=== PATIENT | male | born 2000 | race Caucasian/White ===

== ENCOUNTER 2021-01-23 19:32 | Emergency (ER) | payer BC, OTHER, SELFPAY ==
--- OUTSIDE RECORDS SUMMARY | 2021-01-23 19:35 | XMS REPORT | Continuity of Care Document ---
:2000 Author Organization [facility] t Address [address] [place] [address] Care Team Providers Name Role Phone Morgan Higgins MD Attending Clinician Bernardino Smith MD Attending Clinician Ryan LOGAN Attending Clinician Doctor Unassigned, Name Attending Clinician Unavailable Georges MCDERMOTT Attending Clinician Unavailable Leatha Gautam DO Attending Clinician Problems This patient has no known problems. Allergies, Adverse Reactions, Alerts This patient has no known allergies or adverse reactions. Medications This patient has no known medications. Procedures This patient has no known procedures. Encounters Start End Encounter Admission Attending Care Care Encounter Source Date/Time Date/Time Type Type Clinicians Facility Department ID 2021-01-17 2021-01-18 Emergency [facility] [id number] 23:12:00 00:27:00 Capri [place] [id number] [place] [id number] [place] [id number] 2020-04-18 2020-04-18 Emergency Luis, TRAUMA [id number] 01:09:01 02:25:00 Saul BEE [id number] 2020-04-17 2020-04-17 Emergency [facility] [id number] 13:17:04 14:30:00 Do [place] [id number] [place] [id number] [place] [id number] 2020-04-17 2020-04-17 Orders Doctor DANILO [id number] 00:00:00 00:00:00 Only Unassigned, STACY [id number] [place] [address] [id number] 2020-04-17 2020-04-17 Nurse DANILO Su [id number] 00:00:00 00:00:00 Triage Sandra KUMAR [id number] [id number] 2019-07-08 2019-07-08 Emergency BREEZY Gautam [id number] 14:30:00 15:08:00 Jaja [place] [id number] [place] [id number] [place] [id number] Results This patient has no known results.
[2021-01-23 22:22] LABS: Protime INR 1.1
[2021-01-23 22:25] LABS: Absolute Lymphocytes (CBC) 4.1 K/uL (0.7-4.9); Basophils % 0.5 % (0-1.3); Hematocrit 46.3 % (39.6-49.0); Lymphocytes % 38.1 % (15.3-44.8); MPV 7.8 fL (7.6-11.3); RBC Red Blood Cell Count 5.35 M/uL (4.33-5.43)
[2021-01-23 22:38] LABS: ALT/SGPT 25 U/L (12-78); AST/SGOT 17 U/L (15-37); Albumin 4.4 g/dL (3.4-5.0); Alkaline Phosphatase 109 U/L (45-117); BUN Blood Urea Nitrogen 15 mg/dL (7-18); Bicarbonate 28 mmol/L (21-32); Bilirubin Direct 0.1 mg/dL (0-0.2); Bilirubin Total 0.4 mg/dL (0.2-1.0); Glucose Level 90 mg/dL (74-106); Magnesium 2.3 mg/dL (1.8-2.4); NT PRO-BNP 9 pg/mL (<125); Potassium 3.6 mmol/L (3.5-5.1); Protein, Total 8.3 g/dL (6.4-8.2); Sodium Level 142 mmol/L (136-145); Troponin (Emerg Dept Use Only) < 0.02 ng/mL (0.0-0.045)
--- NOTE | 2021-01-23 23:25 | EDPHYS ---
Physician Documentation [facility] Name: Sd Zimmerman III Age: 20 yrs Sex: Male : 2000 Arrival Date: 01/23/2021 Time: 19:33 Bed 7 Private MD: ED Physician Abdullahi Chavez HPI: 01/24 07:02 This 20 yrs old Male presents to ER via Ambulatory with complaints of Chest tw4 Pain, Dizziness, Nausea. 07:02 The patient or guardian reports chest pain that is located primarily in the anterior tw4 chest wall. The pain does not radiate. Associated signs and symptoms: The patient has no apparent associated signs or symptoms. The chest pain is described as sharp. Duration: The patient or guardian reports a single episode. Severity of pain: At its worst the pain was moderate in the emergency department the pain is unchanged. The patient has not experienced similar symptoms in the past. Historical: - Allergies: 01/23 19:51 No Known Allergies; ll1 - PMHx: 19:51 None; ll1 - PSHx: 19:51 None; ll1 - Immunization history:: Flu vaccine is not up to date. - Social history:: Smoking status: Patient reports the use of cigarette tobacco products, smokes one-half pack cigarettes per day. ROS: 01/24 07:02 Constitutional: Negative for fever, chills, and weight loss, Eyes: Negative for injury, tw4 pain, redness, and discharge, ENT: Negative for injury, pain, and discharge, Cardiovascular: Negative for chest pain, palpitations, and edema, Respiratory: Negative for shortness of breath, cough, wheezing, and pleuritic chest pain, Abdomen/GI: Negative for abdominal pain, nausea, vomiting, diarrhea, and constipation, Back: Negative for injury and pain, MS/Extremity: Negative for injury and deformity, Skin: Negative for injury, rash, and discoloration, Neuro: Negative for headache, weakness, numbness, tingling, and seizure. Exam: 07:02 Constitutional: This is a well developed, well nourished patient who is awake, alert, tw4 and in no acute distress. Head/Face: Normocephalic, atraumatic. 07:02 Cardiovascular: Regular rate and rhythm with a normal S1 and S2. No gallops, murmurs, or rubs. Normal PMI, no JVD. No pulse deficits. Respiratory: Lungs have equal breath sounds bilaterally, clear to auscultation and percussion. No rales, rhonchi or wheezes noted. No increased work of breathing, no retractions or nasal flaring. Abdomen/GI: Soft, non-tender, with normal bowel sounds. No distension or tympany. No guarding or rebound. No evidence of tenderness throughout. Back: No spinal tenderness. No costovertebral tenderness. Full range of motion. MS/ Extremity: Pulses equal, no cyanosis. Neurovascular intact. Full, normal range of motion. Neuro: Awake and alert, GCS 15, oriented to person, place, time, and situation. Cranial nerves II-XII grossly intact. Motor strength 5/5 in all extremities. Sensory grossly intact. Cerebellar exam normal. Normal gait. 07:02 Chest/axilla: Inspection: normal, Palpation: tenderness, that totally reproduces the patient's complaints. Vital Signs: 01/23 19:48 BP 143 / 70; Pulse 80; Resp 17; Temp 98.8; Pulse Ox 100% ; Weight 70.76 kg; Height 5 ll1 ft. 8 in. (172.72 cm); Pain 5/10; 22:55 BP 120 / 82; Pulse 66; Resp 17; Pulse Ox 100% on R/A; jb4 23:30 BP 116 / 79; Pulse 76; Resp 16; Pulse Ox 99% on R/A; jb4 19:48 Body Mass Index 23.72 (70.76 kg, 172.72 cm) ll1 MDM: 23:24 Patient medically screened. 01/24 07:02 Data reviewed: vital signs, nurses notes. Data interpreted: Pulse oximetry: Interpretation: normal. Special discussion: I discussed with the patient/guardian in detail that at this point there is no indication for admission to the hospital. It is understood, however, that if the symptoms persist or worsen the patient needs to return immediately for re-evaluation. 01/23 21:55 Order name: Basic Metabolic Panel; Complete Time: 22:41 01/23 22:42 Interpretation: Within normal limits. 01/23 21:55 Order name: CBC with Diff; Complete Time: 22:41 4 01/23 22:42 Interpretation: Within normal limits. 01/23 21:55 Order name: LFT's; Complete Time: 22:41 01/23 22:41 Interpretation: Normal except: GLOB 3.9; TP 8.3. 01/23 21:55 Order name: Magnesium; Complete Time: 22:41 01/23 22:42 Interpretation: Within normal limits: MG 2.3. 01/23 21:55 Order name: NT PRO-BNP; Complete Time: 22:41 01/23 22:42 Interpretation: Within normal limits: NT PRO-BNP 9. 01/23 21:55 Order name: PT-INR; Complete Time: 22:41 01/23 22:42 Interpretation: Normal except: PT 12.7. 01/23 21:55 Order name: Troponin (emerg Dept Use Only); Complete Time: 22:41 01/23 22:42 Interpretation: Within normal limits: TROPED < 0.02. 01/23 21:55 Order name: XRAY Chest (1 view) 01/23 21:55 Order name: EKG; Complete Time: 21:56 01/23 21:55 Order name: Cardiac monitoring; Complete Time: 21:56 01/23 21:55 Order name: EKG - Nurse/Tech; Complete Time: 21:56 01/23 21:55 Order name: IV Saline Lock; Complete Time: 22:17 01/23 21:55 Order name: Labs collected and sent; Complete Time: 21:56 01/23 21:55 Order name: O2 Per Protocol; Complete Time: 21:56 01/23 21:55 Order name: O2 Sat Monitoring; Complete Time: 21:56 Administered Medications: No medications were administered Disposition: 01/23/21 23:24 Discharged to Home. Impression: Other chest pain. - Condition is Stable. - Discharge Instructions: Nonspecific Chest Pain, Chest Wall Pain, Pain Without a Known Cause. - Prescriptions for Ibuprofen 800 mg Oral Tablet - take 1 tablet by ORAL route every 12 hours As needed take with food; 20 tablet. - Medication Reconciliation Form, Thank You Letter, Antibiotic Education, Prescription Opioid Use form. - Follow up: Private Physician; When: Upon discharge from the Emergency Department; Reason: Recheck today's complaints, Continuance of care, Re-evaluation by your physician. - Problem is new. - Symptoms have improved. Signatures: Dispatcher [employer] EDMS Kobe Brown, RN RN jb4 Abdullahi Chavez MD MD tw4 Kelle Chung RN RN ll1 Corrections: (The following items were deleted from the chart) 00:00 01/23 23:24 01/23/2021 23:24 Discharged to Home. Impression: Other chest pain. jb4 Condition is Stable. Forms are Medication Reconciliation Form, Thank You Letter, Antibiotic Education, Prescription Opioid Use. Follow up: Private Physician; When: Upon discharge from the Emergency Department; Reason: Recheck today's complaints, Continuance of care, Re-evaluation by your physician. Problem is new. Symptoms have improved. tw4
--- NOTE | 2021-01-23 23:25 | ER ---
Nurse's Notes [facility] Name: Sd Zimmerman III Age: 20 yrs Sex: Male : 2000 Arrival Date: 01/23/2021 Time: 19:33 Bed 7 Private MD: Diagnosis: Other chest pain Presentation: 01/23 19:48 Chief complaint: Patient states: Chest pain, SOB, dizzy, nausea, near syncope for 3-4 ll1 months. Got worse recently. No cough or fever. Coronavirus screen: Client denies travel out of the [place] in the last 14 days. Ebola Screen: Patient denies travel to an Ebola-affected area in the 21 days before illness onset. Initial Sepsis Screen: Does the patient meet any 2 criteria? No. Patient's initial sepsis screen is negative. Does the patient have a suspected source of infection? No. Patient's initial sepsis screen is negative. Risk Assessment: Do you want to hurt yourself or someone else? Patient reports no desire to harm self or others. Onset of symptoms was October 01, 2020. 19:48 Method Of Arrival: Ambulatory ll1 19:48 Acuity: KAT 3 ll1 Historical: - Allergies: 19:51 No Known Allergies; ll1 - PMHx: 19:51 None; ll1 - PSHx: 19:51 None; ll1 - Immunization history:: Flu vaccine is not up to date. - Social history:: Smoking status: Patient reports the use of cigarette tobacco products, smokes one-half pack cigarettes per day. Screenin:10 Abuse screen: Denies threats or abuse. Nutritional screening: No deficits noted. jb4 Tuberculosis screening: No symptoms or risk factors identified. Fall Risk None identified. Assessment: 22:10 General: Appears in no apparent distress. uncomfortable, Behavior is. Pain: Complains jb4 of pain in chest Pain does not radiate. Pain currently is 5 out of 10 on a pain scale. Pain began weeks ago. Neuro: Level of Consciousness is awake, alert, obeys commands, Oriented to person, place, time, situation. Cardiovascular: Patient's skin is warm and dry. Respiratory: Airway is patent Respiratory effort is even, unlabored, Respiratory pattern is regular, symmetrical. GI: No signs and/or symptoms were reported involving the gastrointestinal system. : No signs and/or symptoms were reported regarding the genitourinary system. EENT: No signs and/or symptoms were reported regarding the EENT system. Derm: Skin is intact, Skin is pink, warm \T\ dry. 22:59 Reassessment: Patient appears in no apparent distress at this time. Patient and/or jb4 family updated on plan of care and expected duration. Pain level reassessed. Patient is alert, oriented x 3, equal unlabored respirations, skin warm/dry/pink. 23:59 Reassessment: Patient appears in no apparent distress at this time. Patient and/or jb4 family updated on plan of care and expected duration. Pain level reassessed. Patient is alert, oriented x 3, equal unlabored respirations, skin warm/dry/pink. Patient states feeling better. Vital Signs: 19:48 BP 143 / 70; Pulse 80; Resp 17; Temp 98.8; Pulse Ox 100% ; Weight 70.76 kg; Height 5 ll1 ft. 8 in. (172.72 cm); Pain 5/10; 22:55 BP 120 / 82; Pulse 66; Resp 17; Pulse Ox 100% on R/A; jb4 23:30 BP 116 / 79; Pulse 76; Resp 16; Pulse Ox 99% on R/A; jb4 19:48 Body Mass Index 23.72 (70.76 kg, 172.72 cm) ll1 ED Course: 19:33 Patient arrived in ED. am2 19:50 Triage completed. ll1 19:51 Arm band placed on. ll1 19:52 EKG completed in triage. Results shown to MD. ll1 21:54 Abdullahi Chavez MD is Attending Physician. tw4 22:00 Kishore Schwarz, RN is Primary Nurse. em 22:00 Primary Nurse role handed off by Kishore Schwarz, RN jb4 22:00 Kobe Brown, RN is Primary Nurse. jb4 22:10 Patient has correct armband on for positive identification. Bed in low position. Call jb4 light in reach. Side rails up X 1. Pulse ox on. NIBP on. 22:10 Initial lab(s) drawn, by me, sent to lab. Inserted saline lock: 18 gauge in right jb4 antecubital area, using aseptic technique. Blood collected. Patient maintains SpO2 saturation greater than 95% on room air. 22:35 XRAY Chest (1 view) In Process Unspecified. EDMS 23:30 No provider procedures requiring assistance completed. IV discontinued, intact, jb4 bleeding controlled, No redness/swelling at site. Pressure dressing applied. Administered Medications: No medications were administered Outcome: 23:24 Discharge ordered by . tw4 23:30 Discharged to home ambulatory. jb4 23:30 Condition: stable 23:30 Discharge instructions given to patient, Instructed on discharge instructions, follow up and referral plans. medication usage, Demonstrated understanding of instructions, follow-up care, medications, Prescriptions given X 1. 0224 00:00 Patient left the ED. jb4 Signatures: Dispatcher [employer] EDMS Kishore Schwarz, RN RN em Kobe Brown RN RN jb4 Monika Friedman Terrence, MD MD tw4 Kelle Chung, RN RN ll1
[2021-01-24 00:45] VITALS: TEMP 98.8
[2021-01-24 00:48] VITALS: BP 116/79; O2SAT 99
--- NOTE | 2021-01-24 08:04 | RAD REPORT ---
EXAM DESCRIPTION: Leonid Single View01/23/2021 10:35 pm CLINICAL HISTORY: Cough COMPARISON: none FINDINGS: The lungs appear clear of acute infiltrate. The heart is normal size IMPRESSION: No acute abnormalities displayed
--- NOTE | 2021-01-25 05:40 | EKG ---
Test Date: 2021-01-23 Test Time: 19:57:17 Freelance Patternmaker: LML MEASUREMENT RESULTS: Intervals: Rate: 78 PA: 160 QRSD: 84 QT: 348 QTc: 396 Brave: P: 72 PA: 160 QRS: 85 T: 53 INTERPRETIVE STATEMENTS: Normal sinus rhythm Normal ECG No previous ECG available for comparison Electronically Signed On 01-25-21 05:35:56 BARTENDER HELPER by Raphael Escobedo
== END 2021-01-24 | disposition home or self-care (01) ==
LOC: ER 19:32
DX: R07.89 Other chest pain (principal); R42 Dizziness and giddiness; R11.0 Nausea; F17.210 Nicotine dependence, cigarettes, uncomplicated
CPT/HCPCS: 36415; 71045; 80048; 80076; 83735; 83880; 84484; 85025; 85610; 93005; 99284

== ENCOUNTER 2021-09-10 23:21 | Emergency (ER) | payer SELFPAY ==
[2021-09-11] MEDS ORDERED: TETANUS & DIPHTHERIA TOX,ADULT 0.5 ML VIAL ONE (00:05)
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
--- NOTE | 2021-09-11 00:56 | EDPHYS ---
Physician Documentation [facility] Name: Sd Zimmerman III Age: 20 yrs Sex: Male : 2000 Arrival Date: 09/10/2021 Time: 23:24 Bed 11 Private MD: ED Physician Deepak Jackson HPI: 09/11 00:21 This 20 yrs old Male presents to ER via Ambulatory with complaints of Foot kb Injury. 00:21 The patient presents with an injury, a laceration, pain. The complaints affect the arch kb of left foot. Context: The problem was sustained outdoors, resulted from the patient stepping on sharp metal, while not wearing shoes, the patient can fully bear weight, the patient is able to ambulate. Onset: The symptoms/episode began/occurred just prior to arrival. Modifying factors: The symptoms are alleviated by nothing, the symptoms are aggravated by nothing. Associated signs and symptoms: The patient has no apparent associated signs or symptoms. Severity of symptoms: At their worst the symptoms were mild, in the emergency department the symptoms are unchanged. The patient has not experienced similar symptoms in the past. The patient has not recently seen a physician. 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 States he poured whiskey on it and wrapped it in electrical tape but thought he should get it looked at. Historical: - Allergies: 09/10 23:33 No Known Allergies; sj1 - Home Meds: 23:33 None [Active]; sj1 - Immunization history:: Adult Immunizations unknown, Client reports having NOT received the Covid vaccine. Last tetanus immunization: unknown. - Social history:: Smoking status: Patient reports the use of cigarette tobacco products, smokes one pack cigarettes per day. Patient uses alcohol, weekly. Smoking status: Patient reports the use of cigarette tobacco products. - Family history:: not pertinent. - Code Status:: Full code Full code. ROS: 09/11 00:20 Constitutional: Negative for fever, chills, and weight loss. kb MS/extremity: Positive for pain, of the arch of left foot. Skin: Positive for laceration(s), of the arch of left foot. All other systems are negative. Exam: 00:20 Constitutional: This is a well developed, well nourished patient who is awake, alert, kb and in no acute distress. Head/Face: Normocephalic, atraumatic. ENT: Moist Mucous membranes Respiratory: Respirations even and unlabored. No increased work of breathing, no retractions or nasal flaring. MS/ Extremity: Pulses equal, no cyanosis. Neurovascular intact. Full, normal range of motion. Neuro: Awake and alert, GCS 15, oriented to person, place, time, and situation. Moves all extremities. Normal gait. Psych: Awake, alert, with orientation to person, place and time. Behavior, mood, and affect are within normal limits. 00:20 Skin: injury, laceration(s), the wound is approximately 1 cm(s), of the arch of left foot, that can be described as clean, no foreign body, linear, without bleeding. Vital Signs: 09/10 23:32 BP 142 / 85; Pulse 73; Resp 18 S; Temp 98.7(O); Pulse Ox 100% on R/A; Weight 66.22 kg [facility] (R); Height 5 ft. 8 in. (172.72 cm); Pain 12/10; 23:40 BP 131 / 74; Pulse 69; Resp 20; Pulse Ox 100% on R/A; cc4 09/11 01:10 BP 120 / 75; Pulse 60; Resp 20; Temp 98.5; Pulse Ox 100% on R/A; cc4 09/10 23:32 Body Mass Index 22.20 (66.22 kg, 172.72 cm) [facility] MDM: 09/10 23:33 Patient medically screened. kb 09/11 00:19 Data reviewed: vital signs, nurses notes. Data interpreted: Pulse oximetry: on room air kb is 100 %. Interpretation: normal. Counseling: I had a detailed discussion with the patient and/or guardian regarding: the historical points, exam findings, and any diagnostic results supporting the discharge/admit diagnosis, radiology results, the need for outpatient follow up, a family practitioner, to return to the emergency department if symptoms worsen or persist or if there are any questions or concerns that arise at home. 09/10 23:34 Order name: Foot Left 2 View XRAY kb 09/10 23:34 Order name: Wound Care; Complete Time: 23:45 kb Administered Medications: 09/10 23:45 Drug: Tetanus-Diphtheria Toxoid Adult 0.5 ml {Piece [employer]: [employer]. Exp: dc2 04/13/2023. Lot #: [id number]. } Route: IM; Site: left deltoid; 09/11 00:25 Follow up: Response: No adverse reaction dc2 Disposition: 08:46 Co-signature as Attending Physician, Deepak Jackson MD I agree with the assessment and lucy plan of care. Disposition Summary: 09/11/21 00:54 Discharge Ordered Location: Home kb Condition: Stable kb Diagnosis - Laceration without foreign body of foot kb Followup: kb - With: Emergency Department - When: As needed - Reason: Worsening of condition Followup: kb - With: Private Physician - When: 2 - 3 days - Reason: Recheck today's complaints, Continuance of care, Re-evaluation by your physician Discharge Instructions: - Discharge Summary Sheet kb - Nonsutured Laceration Care kb Forms: - Medication Reconciliation Form kb - Thank You Letter kb - Antibiotic Education kb - Prescription Opioid Use kb Signatures: Dispatcher [employer] EDMS Heather Polk, HOSE SUSPENDER CUTTER-C HOSE SUSPENDER CUTTER-Deepak Meeks MD MD cha Cooper, Christie RN RN cc4 Nicole Mcgrath RN RN dc2 Earnestine Gilbert, RN RN sj1 Corrections: (The following items were deleted from the chart) 09/10 23:56 23:56 PMHx: ADD/ADHD; cc4 cc4
[2021-09-11 01:29] VITALS: O2SAT 100
[2021-09-11 01:31] VITALS: BP 120/75; TEMP 98.5
--- NOTE | 2021-09-11 08:57 | RAD REPORT ---
EXAM DESCRIPTION: RAD - Foot Left 2 View - 09/11/2021 12:30 am CLINICAL HISTORY: r/o fb Pain and swelling COMPARISON: RIGHT FOOT W COMPARISON dated 02/07/2015 FINDINGS: No bone or joint abnormality is detected. No radiopaque foreign body seen.
== END 2021-09-11 01:23 | disposition home or self-care (01) ==
LOC: ER 23:21
DX: S91.312A Laceration without foreign body, left foot, initial encounter (principal); W26.8XXA Contact with other sharp object(s), not elsewhere classified, initial encounter; Y93.01 Activity, walking, marching and hiking; Z23 Encounter for immunization; F17.210 Nicotine dependence, cigarettes, uncomplicated
CPT/HCPCS: 90471; 99283

== ENCOUNTER 2022-10-11 16:35 | Emergency (ER) | payer SELFPAY ==
--- OUTSIDE RECORDS SUMMARY | 2022-10-11 16:38 | XMS REPORT | Continuity of Care Document ---
:2000 Author Organization [facility] t Address [address] [place] [address] Care Team Providers Name Role Phone PCP, PATIENT DOES NOT HAVE A Primary Care Physician Unavaila Karthik Ballard DO Attending Clinician KARTHIK MORRISON Attending Clinician Unavailable SERAFIN ASHFORD Attending Clinician Unavailable Serafin Evangelista Attending Clinician Doctor Unassigned, [place] Attending Clinician Unavailable Lili Higgins MD Attending Clinician LILI HIGGINS Attending Clinician Unavailable Saul Smith MD Attending Clinician SAUL SMITH Attending Clinician Unavailable Gris Thomas Attending Clinician GRIS WINKLER Attending Clinician Unavailable Sandra Su RN Attending Clinician Unavailable Jaja Gautam DO Attending Clinician SERAFIN ASHFORD Admitting Clinician Unavailable Problems Condition Condition Condition Status Onset Resolution Last Treating Co mments Source Name Details Category Date Date Treatment Clinician Date No known No known Disease Unive rs active active ity of problems problems [facility] Allergies, Adverse Reactions, Alerts Allergy Allergy Status Severity Reaction(s) Onset Inactive Treating Comm ents Source Name Type Date Date Clinician NO KNOWN Drug Active Univers ALLERGIE Class ity of S [facility] Social History Social Habit Start Date Stop Date Quantity Comments Source Exposure to 2022-06-16 2022-06-26 Not sure [facility] SARS-CoV-2 (event) 00:00:00 22:39:00 Medica l Branch Sex Assigned At [birth year] [facility] [place] 00:00:00 00:00:00 Medical Branch Smoking Status Start Date Stop Date Source Tobacco smoking consumption [facility] Branch Medications Ordered Filled Start Stop Current Ordering Indication Dosage Frequency Signature Comments Components Source Medication Medication Date Date Medication? Clinician (SIG) Name Name naproxen Yes [id number] 500mg Take 1 Un jeremiah (NAPROSYN) 1-18 tablet by ity of 500 mg 00:00: mouth 2 [place] tablet 00 (two) Medical times Branch daily with meals. methocarbam Yes [id number] 500mg Take 1 Univers oL 500 mg 1-18 tablet by ity o f tablet 00:00: mouth 4 [place] 00 (four) Medical times Branch daily as needed for Pain (scale 4-6). traMADoL 50 Yes [id number] 50mg Take 1 Univ ers mg tablet 1-18 tablet by ity o f 00:00: mouth [place] 00 every 6 Medical (six) Branch hours as needed for Pain (scale 7-10). Indication s: acute pain naproxen Yes [id number] 500mg Take 1 Un jeremiah (NAPROSYN) 1-18 tablet by ity of 500 mg 00:00: mouth 2 [place] tablet 00 (two) Medical times Branch daily with meals. methocarbam 0 Yes [id number] 500mg Take 1 Univers oL 500 mg 1-18 tablet by ity o f tablet 00:00: mouth 4 [place] 00 (four) Medical times Branch daily as needed for Pain (scale 4-6). traMADoL 50 2021-0 Yes [id number] 50mg Take 1 Univ ers mg tablet 1-18 tablet by ity o f 00:00: mouth [place] 00 every 6 Medical (six) Branch hours as needed for Pain (scale 7-10). Indication s: acute pain chlorhexidi 2019-0 Yes [id number] 15mL Swish and Univers ne 5-18 spit out ity of (PERIDEX) 00:00: 15 mL 2 [place] 0.12 % 00 (two) Medical mouthwash times Branch daily. traMADol 50 2019- Yes [id number] 50mg Take 1 Univers mg tablet 5-18 tablet by ity o f 00:00: mouth [place] 00 every 8 Medical (eight) Branch hours as needed (pain unrelieved by Ibuprofen or Aleve). chlorhexidi 2020-0 Yes [id number] 15mL Swish and Univers ne 5-18 spit out ity of (PERIDEX) 00:00: 15 mL 2 [place] 0.12 % 00 (two) Medical mouthwash times Branch daily. chlorhexidi 2020-0 Yes [id number] 15mL Swish and Univers ne 5-18 spit out ity of (PERIDEX) 00:00: 15 mL 2 [place] 0.12 % 00 (two) Medical mouthwash times Branch daily. traMADol 50 2019-0 2021- No [id number] 50mg Take 1 Univers mg tablet 5-18 -18 tablet by ity of 00:00: 00:00 mouth [place] 00 :00 every 8 Medical (eight) Branch hours as needed (pain unrelieved by Ibuprofen or Aleve). amoxicillin 2015-0 Yes 500mg Take 1 Uni vers -pot 9-20 tablet by ity of clavulanate 00:00: mouth [place] 500 mg 00 every 8 Medical (AUGMENTIN (eight) Branch 500) hours. 500-125 mg tablet amoxicillin 2015-0 Yes 500mg Take 1 Uni vers -pot 9-20 tablet by ity of clavulanate 00:00: mouth [place] 500 mg 00 every 8 Medical (AUGMENTIN (eight) Branch 500) hours. 500-125 mg tablet amoxicillin 2015-0 Yes 500mg Take 1 Uni vers -pot 9-20 tablet by ity of clavulanate 00:00: mouth [place] 500 mg 00 every 8 Medical (AUGMENTIN (eight) Branch 500) hours. 500-125 mg tablet Vital Signs Vital Name Observation Time Observation Value Comments Source Systolic blood 2022-06-27 03:42:00 148 mm[Hg] [facility] [place] Diastolic blood 2022-06-27 03:42:00 94 mm[Hg] [facility] Heart rate 2022-06-27 03:42:00 86 /min [facility] Body temperature 2022-06-27 03:42:00 37.28 [facility] Respiratory rate 2022-06-27 03:42:00 18 /min [facility] Body height 2022-06-27 03:42:00 175.3 cm Universi ty of [facility] Body weight 2022-06-27 03:42:00 79.379 kg Universi ty [facility] BMI 2022-06-27 03:42:00 25.84 kg/m2 Universi ty [facility] Oxygen saturation in 2022-06-27 03:42:00 99 /min University of Arterial blood by [facility] Pulse oximetry Branch Systolic blood 2021-12-18 21:21:00 127 mm[Hg] Univer sity of pressure [facility] Diastolic blood 2021-12-18 21:21:00 71 mm[Hg] Unive rsity of [facility] Heart rate 2021-12-18 21:21:00 89 /min Universi ty [facility] Body temperature 2021-12-18 21:21:00 36.94 [facility] Respiratory rate 2021-12-18 21:21:00 20 /min [facility] weight 2021-12-18 21:21:00 67.994 kg Universi ty [facility] Oxygen saturation in 2021-12-18 21:21:00 100 /min University of Arterial blood by [facility] Pulse oximetry Branch Procedures Procedure Date / Time Performed Performing Clinician Sourc e XR CHEST 1 VW 2021-12-18 21:39:22 Serafin Ashford [facility] o f [facility] NOTICE OF PRIVACY 2021-12-18 21:11:16 Doctor Unassigned, No [facility] Name [facility] Branch CONSENT/REFUSAL FOR 2021-12-18 21:11:00 [facility] AND Name Medical Branch TREATMENT Encounters Start End Encounter Admission Attending Care Care Encounter Source Date/Time Date/Time Type Type Clinicians Facility Department ID 2022-06-26 2022-06-26 Emergency BREEZY Morrison [id number] Univers 22:45:00 22:59:00 Karthik BELTRAN [id number] i ty [facility] [id number] [facility] [id number] [facility] black 084 Branch 2022-06-26 2022-06-26 Emergency X FAULCONER, [facility] ERT [id number] Univers 22:45:00 22:59:00 KARTHIK dumont [facility] 2021-12-18 2021-12-18 [facility] [id number] Univers 15:23:00 16:34:00 SERAFIN dumont [facility] 2021-12-18 2021-12-18 [facility] [id number] Univers 15:23:00 16:34:00 Serafin ROQUEREHANA [id number] i ty of [place] [id number] [facility] [id number] [facility] 084 Branch 2021-12-18 2021-12-18 Orders Doctor DANILO [id number] Univers 00:00:00 00:00:00 Only Unassigned, STACY [id number] ity of [facility] [id number] [facility] [id number] [facility] 009 Branch 2021-01-17 2021-01-18 [facility] [id number] 23:12:00 00:27:00 Lili Beltran [id number] [place] [id number] [place] [id number] 2021-01-17 2021-01-17 Emergency X CASSIUSMITCHLUIS [facility] ERT [id number] Univers 23:12:00 23:12:00 [facility] 2020-04-18 2020-04-18 Emergency Morrical, TRAUMA [id number] 01:09:01 02:25:00 Saul BEE [id number] 2020-04-18 2020-04-18 Emergency X EL, [facility] ERT [id number] Univers 01:09:01 01:09:01 SAUL dumont [facility] 2020-04-17 2020-04-17 [facility] [id number] 13:17:04 14:30:00 Gris Beltran [id number] [place] 4.2.7.2.686 [place] [id number] 2020-04-17 2020-04-17 Emergency Mari WINKLER [facility] ERT [id number] Univers 13:17:04 13:17:04 GRIS ibisjohn [facility] 2020-04-17 2020-04-17 Orders Doctor DANILO [id number] 00:00:00 00:00:00 Only Unassigned, STACY [id number] [place] [id number] 2020-04-17 2020-04-17 Nurse DANILO Su [id number] 00:00:00 00:00:00 Triage Sandra KUMAR [id number] [place] [id number] 2019-07-08 2019-07-08 Emergency Dain [facility] [id number] 14:30:00 15:08:00 Jaja Beltran [id number] [place] [id number] [place] [id number] Results This patient has no known results.
--- NOTE | 2022-10-11 17:57 | RAD REPORT ---
EXAM DESCRIPTION: RAD - Finger-Thumb Right - 10/11/2022 5:52 pm CLINICAL HISTORY: SMASH INJURY COMPARISON: No comparisonsNo comparisons FINDINGS/IMPRESSION: No acute fracture. No malalignment. No significant focal degenerative changes.
[2022-10-11] MEDS ORDERED: DERMABOND SKIN ADHESIVE TOP ONE ×3 (18:13→18:22)
--- NOTE | 2022-10-11 18:16 | ER ---
Nurse's Notes [facility] Name: Sd Zimmerman III Age: 21 yrs Sex: Male : 2000 Arrival Date: 10/11/2022 Time: 16:39 Bed DIS3 Private MD: Diagnosis: Pain in left finger(s) Presentation: 10/11 16:42 Chief complaint: Crush injury to right index finger when judie failed and truck came hb down on his hand. Coronavirus screen: At this time, the client does not indicate any symptoms associated with coronavirus-19. Ebola Screen: No symptoms or risks identified at this time. Risk Assessment: Do you want to hurt yourself or someone else? Patient reports no desire to harm self or others. Onset of symptoms was October 11, 2022. 16:42 Method Of Arrival: Ambulatory hb 16:42 Acuity: KAT 3 hb 18:31 Initial Sepsis Screen: Does the patient meet any 2 criteria? No. Patient's initial ss sepsis screen is negative. Does the patient have a suspected source of infection? No. Patient's initial sepsis screen is negative. Historical: - Allergies: 16:44 No Known Allergies; hb - Immunization history:: Last tetanus immunization: unknown. - Social history:: Smoking status: Patient denies any tobacco usage or history of. Screenin:29 Abuse screen: Denies threats or abuse. Denies injuries from another. Nutritional ss screening: No deficits noted. Tuberculosis screening: Never had TB. Fall Risk None identified. Assessment: 18:29 General: Appears in no apparent distress. comfortable, Behavior is calm, cooperative, ss appropriate for age. Neuro: Level of Consciousness is awake, alert, obeys commands, Oriented to person, place, time, situation. Respiratory: Airway is patent Respiratory effort is even, unlabored, Respiratory pattern is regular, symmetrical. Derm: Skin is intact, is healthy with good turgor, Skin is dry, Skin is pink, warm \T\ dry. normal. Musculoskeletal: Swelling absent. Injury Description: Laceration sustained to palmar aspect of middle phalanx of right index finger. Vital Signs: 16:42 BP 121 / 91; Pulse 77; Resp 16; Temp 97.8; Pulse Ox 100% on R/A; Weight 77.11 kg; hb Height 5 ft. 8 in. (172.72 cm); Pain 5/10; 16:42 Body Mass Index 25.85 (77.11 kg, 172.72 cm) ED Course: 16:39 Patient arrived in ED. am2 16:44 Triage completed. hb 16:44 Dameon Butler is PHCP. jl9 16:44 Junaid aBe MD is Attending Physician. jl9 17:54 XRAY Finger-Thumb RIGHT In Process Unspecified. EDMS 18:01 Brock Davis, BALDEMAR is Primary Nurse. jd3 18:01 Arm band placed on. jd3 18:12 Socorro Montalvo, BALDEMAR is Primary Nurse. ss 18:24 No provider procedures requiring assistance completed. Patient did not have IV access ss during this emergency room visit. 18:29 Patient has correct armband on for positive identification. ss Administered Medications: No medications were administered Medication: 18:29 VIS not applicable for this client. ss Outcome: 18:15 Discharge ordered by . jl9 18:24 Discharged to home ambulatory, with friend. ss 18:24 Condition: good 18:24 Discharge instructions given to patient, family, Instructed on discharge instructions, follow up and referral plans. wound care, Demonstrated understanding of instructions, follow-up care, wound care. 18:32 Patient left the ED. ss Signatures: Dispatcher [employer] [facility] Socorro Montalvo RN RN Shantelle De Souza RN RN Monika Friedman am2 Brock Davis RN RN jd3 Linares, John jl9
--- NOTE | 2022-10-11 18:16 | EDPHYS ---
Physician Documentation [facility] Name: Sd Zimmerman III Age: 21 yrs Sex: Male : 2000 Arrival Date: 10/11/2022 Time: 16:39 Bed DIS3 Private MD: ED Physician Junaid Bae HPI: 10/11 18:12 This 21 yrs old Male presents to ER via Ambulatory with complaints of Finger jl9 Injury. Patient reports dropping a judie on his left index finger. . 18:12 Mechanism of injury: Crush injury:. Associated injuries: The patient sustained Left jl9 index finger. . Onset: The symptoms/episode began/occurred just prior to arrival. Historical: - Allergies: 16:44 No Known Allergies; hb - Immunization history:: Last tetanus immunization: unknown. - Social history:: Smoking status: Patient denies any tobacco usage or history of. ROS: 18:12 Constitutional: Negative for fever, chills, and weight loss, Eyes: Negative for injury, jl9 pain, redness, and discharge, ENT: Negative for injury, pain, and discharge, Neck: Negative for injury, pain, and swelling, Cardiovascular: Negative for chest pain, palpitations, and edema, Respiratory: Negative for shortness of breath, cough, wheezing, and pleuritic chest pain, Abdomen/GI: Negative for abdominal pain, nausea, vomiting, diarrhea, and constipation, Back: Negative for injury and pain, : Negative for injury, bleeding, discharge, and swelling, Skin: Negative for injury, rash, and discoloration. 18:12 Neuro: Negative for headache, weakness, numbness, tingling, and seizure, Psych: Negative for depression, anxiety, suicide ideation, homicidal ideation, and hallucinations, Allergy/Immunology: Negative for hives, rash, and allergies, Endocrine: Negative for neck swelling, polydipsia, polyuria, polyphagia, and marked weight changes, Hematologic/Lymphatic: Negative for swollen nodes, abnormal bleeding, and unusual bruising. 18:12 MS/extremity: Positive for Left index finger pain. . Exam: 18:13 Constitutional: This is a well developed, well nourished patient who is awake, alert, jl9 and in no acute distress. Head/Face: Normocephalic, atraumatic. Eyes: Pupils equal round and reactive to light, extra-ocular motions intact. Lids and lashes normal. Conjunctiva and sclera are non-icteric and not injected. Cornea within normal limits. Periorbital areas with no swelling, redness, or edema. ENT: Mucous membranes moist. Neck: Trachea midline, no thyromegaly or masses palpated, and no cervical lymphadenopathy. Supple, full range of motion without nuchal rigidity, or vertebral point tenderness. No Meningismus. Chest/axilla: Normal chest wall appearance and motion. Nontender with no deformity. No lesions are appreciated. Cardiovascular: Regular rate and rhythm with a normal S1 and S2. No gallops, murmurs, or rubs. Normal PMI, no JVD. No pulse deficits. Respiratory: Lungs have equal breath sounds bilaterally, clear to auscultation and percussion. No rales, rhonchi or wheezes noted. No increased work of breathing, no retractions or nasal flaring. Abdomen/GI: Soft, non-tender, with normal bowel sounds. No distension or tympany. No guarding or rebound. No evidence of tenderness throughout. Back: No spinal tenderness. No costovertebral tenderness. Full range of motion. Skin: Warm, dry with normal turgor. Normal color with no rashes, no lesions, and no evidence of cellulitis. 18:13 Neuro: Awake and alert, GCS 15, oriented to person, place, time, and situation. Cranial nerves II-XII grossly intact. Motor strength 5/5 in all extremities. Sensory grossly intact. Cerebellar exam normal. Normal gait. Psych: Awake, alert, with orientation to person, place and time. Behavior, mood, and affect are within normal limits. 18:13 Skin: 0.5cm superficial laceration to left index finger. . Vital Signs: 16:42 BP 121 / 91; Pulse 77; Resp 16; Temp 97.8; Pulse Ox 100% on R/A; Weight 77.11 kg; hb Height 5 ft. 8 in. (172.72 cm); Pain 5/10; 16:42 Body Mass Index 25.85 (77.11 kg, 172.72 cm) hb Laceration: 18:14 Wound Repair of 0.5cm ( 0.2in ) subcutaneous laceration to left hand. Distal jl9 neuro/vascular/tendon intact. Skin closed with 1-0 Adhesive skin closure using Dermabond. Dressed with bandaid. Patient tolerated well. MDM: 16:44 Patient medically screened. jl9 18:13 Data reviewed: vital signs, nurses notes. Counseling: I had a detailed discussion with jl9 the patient and/or guardian regarding: the historical points, exam findings, and any diagnostic results supporting the discharge/admit diagnosis, lab results, radiology results, the need for outpatient follow up, to return to the emergency department if symptoms worsen or persist or if there are any questions or concerns that arise at home. 10/11 16:45 Order name: XRAY Finger-Thumb RIGHT; Complete Time: 18:10 jl9 10/11 18:11 Order name: Dermabond; Complete Time: 18:24 jl9 10/11 18:11 Order name: Wound Care; Complete Time: 18:24 jl9 Administered Medications: No medications were administered Disposition Summary: 10/11/22 18:15 Discharge Ordered Location: Home jl9 Condition: Stable jl9 Diagnosis - Pain in left finger(s) jl9 Followup: jl9 - With: Private Physician - When: 1 - 2 days - Reason: Recheck today's complaints, Continuance of care, Re-evaluation by your physician Discharge Instructions: - Discharge Summary Sheet jl9 - Finger Sprain, Adult, [id number] jl9 Forms: - Medication Reconciliation Form jl9 - Thank You Letter jl9 - Antibiotic Education jl9 - Work release form ss - Prescription Opioid Use jl9 Signatures: Dispatcher [employer] EDMS Socorro Montalvo RN RN Shantelle De Souza RN RN hb Linares, John jl9 Corrections: (The following items were deleted from the chart) 17:14 16:45 Hand Right 3 View+RAD.RAD.BRZ ordered. EDWA EDMS
[2022-10-11 19:01] VITALS: BP 121/91; TEMP 97.8; O2SAT 100
== END 2022-10-11 18:32 | disposition home or self-care (01) ==
LOC: ER 16:35
PROC: 0JQK0ZZ Repair Left Hand Subcutaneous Tissue and Fascia, Open Approach (ICD-10-PCS; principal; 2022-10-11)
DX: S61.211A Laceration without foreign body of left index finger without damage to nail, initial encounter (principal)
CPT/HCPCS: 99283

== ENCOUNTER 2023-09-05 13:42 | Emergency (ER) | payer SELFPAY ==
--- OUTSIDE RECORDS SUMMARY | 2023-09-05 13:45 | XMS REPORT | Continuity of Care Document ---
:2000 Author Organization [facility] t Address [address] [place] [address] [address] [place] [address] Care Team Providers Name Role Phone PCP, PATIENT DOES NOT HAVE A Primary Care Physician UnavailDALLIN Woo Attending Clinician Unavailable Karthik Morrison DO Attending Clinician KARTHIK MORRISON Attending Clinician Unavailable SERAFIN ASHFORD Attending Clinician Unavailable Serafin Evangelista Attending Clinician Doctor Unassigned, [place] Attending Clinician Unavailable Lili Higgins MD Attending Clinician LILI HIGGINS Attending Clinician Unavailable Saul Smith MD Attending Clinician SAUL SMITH Attending Clinician Unavailable Gris Thomas Attending Clinician GRIS WINKLER Attending Clinician Unavailable Sandra Su RN Attending Clinician Unavailable Jaja Gautam DO Attending Clinician DALLIN UMANA Admitting Clinician Unavailable SERAFIN ASHFORD Admitting Clinician Unavailable Problems Condition Condition Condition Status Onset Resolution Last Treating Co mments Source Name Details Category Date Date Treatment Clinician Date No known No known Disease Unive rs active active ity of problems problems [facility] Allergies, Adverse Reactions, Alerts Allergy Allergy Status Severity Reaction(s) Onset Inactive Treating Comm ents Source Name Type Date Date Clinician NO KNOWN Drug Active Univers ALLERGIE Class ity of S [facility] Social History Social Habit Start Date Stop Date Quantity Comments Source Exposure to 2022-06-16 2022-06-26 Not sure [facility] SARS-CoV-2 (event) 00:00:00 22:39:00 Medica l Branch Sex Assigned At [address] [facility] y [facility] [place] 00:00:00 00:00:00 Medical Branch Smoking Status Start Date Stop Date Source Tobacco smoking consumption [facility] Medical unknown Branch Medications Ordered Filled Start Stop Current Ordering Indication Dosage Frequency Signature Comments Components Source Medication Medication Date Date Medication? Clinician (SIG) Name Name ibuprofen 2022- No 600mg 600 mg, Uni vers (IBU) 05-13 Oral, ity of tablet 600 04:45: 04:35 ONCE, 1 [place] as mg 00 :00 dose, On Medical Mon Branch 05/12/23 at 2345, ALEX ibuprofen Yes [id number] 600mg Take 1 Univers 600 mg 05-13 [id number] tablet by ity of tablet 00:00: mouth [place] 00 every 6 Medical (six) Branch hours as needed for Pain (scale 4-6). naproxen Yes [id number] 500mg Take 1 Un jeremiah (NAPROSYN) 1-18 tablet by ity of 500 mg 00:00: mouth 2 [place] tablet 00 (two) Medical times Branch daily with meals. methocarbam 2021-0 Yes [id number] 500mg Take 1 Univers oL 500 mg [...] (scale 7-10). Indication s: acute pain naproxen 2021-0 Yes [id number] 500mg Take 1 Un jeremiah (NAPROSYN) 1-18 tablet by ity of 500 mg 00:00: mouth 2 [place] tablet 00 (two) Medical times Branch daily with meals. methocarbam 2021-0 Yes [id number] 500mg Take 1 Univers oL 500 mg [...] (scale 7-10). Indication s: acute pain naproxen 2021-0 Yes [id number] 500mg Take 1 Un jeremiah (NAPROSYN) 1-18 tablet by ity of 500 mg 00:00: mouth 2 [place] tablet 00 (two) Medical times Branch daily with meals. methocarbam 2021-0 Yes [id number] 500mg Take 1 Univers oL 500 mg [...] (scale 7-10). Indication s: acute pain chlorhexidi 2020-0 Yes [id number] 15mL Swish and Univers ne 5-18 spit out ity of (PERIDEX) 00:00: 15 mL 2 [place] 0.12 % 00 (two) Medical mouthwash times Branch daily. traMADol 50 2019-0 Yes [id number] 50mg Take 1 Univers mg tablet 5-18 tablet by ity o f 00:00: mouth [place] 00 every 8 Medical (eight) Branch hours as needed (pain unrelieved by Ibuprofen or Aleve). chlorhexidi 2020-0 Yes [id number] 15mL Swish and Univers ne 5-18 spit out ity of (PERIDEX) 00:00: 15 mL 2 [place] 0.12 % 00 (two) Medical mouthwash times Branch daily. chlorhexidi 2020-0 Yes [id number] 15mL Swish and Univers ne 5-18 spit out ity of (PERIDEX) 00:00: 15 mL 2 [place] 0.12 % 00 (two) Medical mouthwash times Branch daily. chlorhexidi 2020-0 Yes [id number] 15mL Swish and Univers ne 5-18 spit out ity of (PERIDEX) 00:00: 15 mL 2 [place] 0.12 % 00 (two) Medical mouthwash times Branch daily. traMADol 50 2019-0 2021- No [id number] 50mg Take 1 Univers mg tablet 5-18 -18 tablet by ity of 00:00: 00:00 mouth [place] 00 :00 every 8 Medical (eight) Branch hours as needed (pain unrelieved by Ibuprofen or Aleve). amoxicillin 2015- Yes 500mg Take 1 Uni vers -pot 9-20 tablet by ity of clavulanate 00:00: mouth [place] 500 mg 00 every 8 Medical (AUGMENTIN (eight) Branch 500) hours. 500-125 mg tablet amoxicillin 0 Yes 500mg Take 1 Uni vers -pot 9-20 tablet by ity of clavulanate 00:00: mouth [place] 500 mg 00 every 8 Medical (AUGMENTIN (eight) Branch 500) hours. 500-125 mg tablet amoxicillin Yes 500mg Take 1 Uni vers -pot 9-20 tablet by ity of clavulanate 00:00: mouth [place] 500 mg 00 every 8 Medical (AUGMENTIN (eight) Branch 500) hours. 500-125 mg tablet amoxicillin Yes 500mg Take 1 Uni vers -pot 9-20 tablet by ity of clavulanate 00:00: mouth [place] 500 mg 00 every 8 Medical (AUGMENTIN (eight) Branch 500) hours. 500-125 mg tablet Vital Signs Vital Name Observation Time Observation Value Comments Source BMI 2023-05-13 04:25:00 22.05 kg/m2 [facility] Oxygen saturation in 2023-05-13 04:25:00 100 /min [facility] Arterial blood by [facility] Pulse oximetry Branch Systolic blood 2023-05-13 04:25:00 144 mm[Hg] Univer sity of pressure [facility] Diastolic blood 2023-05-13 04:25:00 85 mm[Hg] Unive [facility] Heart rate 2023-05-13 04:25:00 79 /min [facility] Body temperature 2023-05-13 04:25:00 36.72 [facility] Respiratory rate 2023-05-13 04:25:00 18 /min [facility] Body height 2023-05-13 04:25:00 172.7 cm [facility] Body weight 2023-05-13 04:25:00 65.772 kg [facility] [place] [facility] Body temperature 2022-06-27 03:42:00 37.28 Shweta [facility] [place] [facility] Respiratory rate 2022-06-27 03:42:00 18 /min [facility] [place] [facility] Body height 2022-06-27 03:42:00 175.3 cm [facility] [place] [facility] [place] Body weight 2022-06-27 03:42:00 79.379 kg [facility] [place] [facility] BMI 2022-06-27 03:42:00 25.84 kg/m2 [facility] [place] [facility] [place] Oxygen saturation in 2022-06-27 03:42:00 99 /min University of Arterial blood by [facility] black Pulse oximetry Branch Systolic blood 2022-06-27 03:42:00 148 mm[Hg] Univer sity of pressure [place] [facility] [place] Diastolic blood 2022-06-27 03:42:00 94 mm[Hg] Unive rsity of pressure [place] [facility] [place] Heart rate 2022-06-27 03:42:00 86 /min [facility] [place] [facility] Systolic blood 2021-12-18 21:21:00 127 mm[Hg] Univer sity of pressure [place] [facility] Diastolic blood 2021-12-18 21:21:00 71 mm[Hg] Unive rsity of pressure [place] [facility] Heart rate 2021-12-18 21:21:00 89 /min [facility] [place] [facility] [place] Body temperature 2021-12-18 21:21:00 36.94 Shweta [facility] [place] [facility] [place] Respiratory rate 2021-12-18 21:21:00 20 /min [facility] [place] [facility] Body weight 2021-12-18 21:21:00 67.994 kg [facility] [place] [facility] [place] Oxygen saturation in 2021-12-18 21:21:00 100 /min University of Arterial blood by [facility] black Pulse oximetry Branch Procedures Procedure Date / Time Performed Performing Clinician David e ASSIGNMENT OF BENEFITS 2023-05-13 04:51:33 Doctor Unassigned, No [facility] NOTICE OF PRIVACY 2023-05-13 04:15:23 Doctor Unassigned, No [facility] CONSENT/REFUSAL FOR 2023-05-13 04:14:15 Doctor Unassigned, No [facility] [place] DIAGNOSIS AND Name Medical Branch TREATMENT XR CHEST 1 VW 2021-12-18 21:39:22 Serafin Ashford Orlando o [facility] NOTICE OF PRIVACY 2021-12-18 21:11:16 Doctor Unassigned, No [facility] [place] PRACTICES Name Medical Branch CONSENT/REFUSAL FOR 2021-12-18 21:11:00 Doctor Unassigned, No [facility] [place] DIAGNOSIS AND Name Medical Branch TREATMENT Encounters Start End Encounter Admission Attending Care Care Encounter Source Date/Time Date/Time Type Type Clinicians Facility Department ID 2023-05-12 2023-05-13 Emergency X JERROD [facility] ERT [id number] Univers 23:26:00 00:48:00 DALLIN [facility] [place] 2023-05-12 2023-05-13 Emergency Jerrod [facility] [id number] Univers 23:26:00 00:48:00 Dallin BELTRAN [id number] i ty of [place] [id number] [facility] [id number] [address] 2022-06-26 2022-06-26 Emergency [facility] [id number] Univers 22:45:00 22:59:00 Karthik BELTRAN [id number] i ty of [place] [id number] [facility] [id number] [address] 2022-06-26 2022-06-26 Emergency X TAMIKO [facility] ERT [id number] Univers 22:45:00 22:59:00 KARTHIK dumont [facility] 2021-12-18 2021-12-18 Emergency X [facility] [id number] Univers 15:23:00 16:34:00 SERAFIN [facility] [place] 2021-12-18 2021-12-18 Emergency Makeda [facility] [id number] Univers 15:23:00 16:34:00 Serafin BELTRAN [id number] i ty [facility] [id number] [facility] [id number] [facility] [address] [place] 2021-12-18 2021-12-18 Orders Doctor CARRASCO [id number] Univers 00:00:00 00:00:00 Only Unassigned, STACY [id number] ity of [place] [facility] [id number] [facility] [place] [id number] [facility] [address] [place] 2021-01-17 2021-01-18 Emergency Critical access hospital [id number] 23:12:00 00:27:00 Mdchavez Morgan Shawanda [id number] Victor [id number] [place] [id number] [facility] 2021-01-17 2021-01-17 [facility] [id number] Univers 23:12:00 23:12:00 LILI [facility] [place] 2020-04-18 2020-04-18 Emergency Morrical, TRAUMA [id number] 01:09:01 02:25:00 Saul ROHIT [id number] [facility] 2020-04-18 2020-04-18 Emergency X CHERYLRICAL, [facility] ERT [id number] Univers 01:09:01 01:09:01 SAUL dumont [facility] 2020-04-17 2020-04-17 Emergency [facility] [id number] 13:17:04 14:30:00 Gris Beltran [id number] [place] [id number] [place] [id number] [facility] 2020-04-17 2020-04-17 Emergency [facility] [id number] Univers 13:17:04 13:17:04 GRIS dumont [facility] 2020-04-17 2020-04-17 Orders Doctor CARRASCO [id number] 00:00:00 00:00:00 Only Unassigned, STACY [id number] [place] [facility] [id number] 009 2020-04-17 2020-04-17 Nurse DANILO Su [id number] 00:00:00 00:00:00 Triage Sandra KUMAR [id number] [facility] [id number] 2019-07-08 2019-07-08 Emergency [facility] [id number] 14:30:00 15:08:00 Jaja Beltran [id number] [place] [id number] [place] [id number] Results This patient has no known results.
[2023-09-05 14:26] LABS: Protime INR 1.08
[2023-09-05 14:35] LABS: Absolute Lymphocytes (CBC) 2.2 K/uL (0.7-4.9); Hematocrit 45.2 % (39.6-49.0); Lymphocytes % 19.3 % (15.3-44.8); MCV 87.4 fL (80-100); MPV 7.6 fL (7.6-11.3); Platelets 194 thou/uL (152-406); RBC Red Blood Cell Count 5.16 M/uL (4.33-5.43)
[2023-09-05 14:39] LABS: Potassium 3.9 mEq/L (3.5-5.1); Troponin High Sensitivity 4.4 pg/mL (<58.9)
--- NOTE | 2023-09-05 15:38 | RAD REPORT ---
EXAM DESCRIPTION: CT - Chest For Pe Angio - 09/05/2023 3:03 pm CLINICAL HISTORY: Chest pain hemoptysis COMPARISON: None. TECHNIQUE: Dynamically enhanced axial 3 mm thick images of the chest were obtained during administra tion of 100 mL Isovue 370 IV contrast. Coronal and oblique reconstruction images were generated and r eviewed. Exam utilizes a protocol for optimal evaluation of pulmonary arterial tree. Maximum intensity projections 3D imaging was utilized All CT scans are performed using dose optimization technique as appropriate and may include automated exposure control or mA/KV adjustment according to patient size. FINDINGS: A pulmonary embolus is not seen. A thoracic aortic aneurysm is not noted. A pleural effusion is not seen. A pericardial effusion is not seen. A lung consolidation is not present. IMPRESSION: Negative for a pulmonary embolism.
--- NOTE | 2023-09-05 15:38 | RAD REPORT ---
EXAM DESCRIPTION: Leonid Single View09/05/2023 2:35 pm CLINICAL HISTORY: Chest pain COMPARISON: 2011 FINDINGS: The lungs appear clear of acute infiltrate. The heart is normal size IMPRESSION: No acute abnormalities displayed
--- NOTE | 2023-09-05 15:53 | ER ---
Nurse's Notes [facility] Name: Sd Zimmerman III Age: 22 yrs Sex: Male : 2000 Arrival Date: 09/05/2023 Time: 13:42 Bed 5 Private MD: Diagnosis: Hemoptysis Presentation: 09/05 13:47 Method Of Arrival: EMS: [facility] ko1 13:47 Acuity: KAT 3 ko1 13:47 Coronavirus screen: At this time, the client does not indicate any symptoms associated ko1 with coronavirus-19. Ebola Screen: No symptoms or risks identified at this time. 13:47 Chief complaint: EMS states: patient has been having chest pain and coughed up about ko1 20cc of dark blood today, the chest pain has been going on for a couple of months. 14:32 Initial Sepsis Screen: Does the patient meet any 2 criteria? No. Patient's initial ko1 sepsis screen is negative. Does the patient have a suspected source of infection? No. Patient's initial sepsis screen is negative. Risk Assessment: Do you want to hurt yourself or someone else? Patient reports no desire to harm self or others. Onset of symptoms is unknown. Triage Assessment: 14:36 General: Appears distressed, Behavior is appropriate for age, anxious. Pain: Complains ko1 of pain in chest. Historical: - Allergies: 14:36 No Known Allergies; ko1 - Immunization history:: Adult Immunizations unknown. - Social history:: Smoking status: Patient reports the use of cigarette tobacco products, Reported history of juuling and/or vaping. Screenin:47 [facility] ED Fall Risk Assessment (Adult) History of falling in the last 3 months, ko1 including since admission No falls in past 3 months (0 pts) Confusion or Disorientation No (0 pts) Intoxicated or Sedated No (0 pts) Impaired Gait No (0 pts) Mobility Assist Device Used No (0 pt) Altered Elimination No (0 pt) Score/Fall Risk Level 0 - 2 = Low Risk Oriented to surroundings, Maintained a safe environment, Educated pt \T\ family on fall prevention, incl call for assistance when getting out of bed, Assessed \T\ reinforced patient's understanding of fall precautions, Provided non-skid footwear, Hourly rounding (assess needs \T\ fall precautionary measures) done, Used ambulatory aids as needed (educated on \T\ assisted with), Used gait belt as appropriate. Abuse screen: Denies threats or abuse. Denies injuries from another. Nutritional screening: No deficits noted. Tuberculosis screening: No symptoms or risk factors identified. Assessment: 13:47 Neuro: No deficits noted. Cardiovascular: Reports chest pain. Respiratory: Reports ko1 cough that is productive. GI: No deficits noted. : No deficits noted. EENT: No deficits noted. Derm: No deficits noted. Musculoskeletal: No deficits noted. Vital Signs: 13:47 BP 132 / 77; Pulse 83; Resp 16; Pulse Ox 99% on R/A; ko1 14:36 BP 152 / 65; Pulse 82; Resp 16; Temp 98; Pulse Ox 99% on R/A; ko1 16:04 BP 123 / 70; Pulse 78; Resp 14; Pulse Ox 97% on R/A; ko1 ED Course: 13:47 Patient arrived in ED. ko1 13:47 Josefina Hernández FNP is [facility] 13:47 Phan Rousseau MD is Attending Physician. [facility] 13:47 Patient has correct armband on for positive identification. Bed in low position. Call ko1 light in reach. Side rails up X2. LJ pd at bedside, patient is in custody. Client placed on continuous cardiac and pulse oximetry monitoring. NIBP monitoring applied. manager monitoring on. Noise minimized. Lights dimmed. Warm blanket given. 14:15 Inserted saline lock: 22 gauge in right antecubital area, using aseptic technique. ko1 Blood collected. 14:20 Keiko Núñez, RN is Primary Nurse. ko1 14:20 Basic Metabolic Panel Sent. ko1 14:20 CBC with Diff Sent. ko1 14:20 D-Dimer Sent. ko1 14:20 PT-INR Sent. ko1 14:20 Troponin HS Sent. ko1 14:34 Triage completed. ko1 14:35 XRAY Chest (1 view) In Process Unspecified. EDMS 14:36 Arm band placed on right wrist. Patient placed in an exam room, on a stretcher, on ko1 cardiac monitor technician, on pulse oximetry, Patient notified of wait time. 15:05 CT Chest For PE Angio In Process Unspecified. EDMS 15:52 Yoel Mackenzie MD is Referral Physician. jh7 16:04 No provider procedures requiring assistance completed. IV discontinued, intact, ko1 bleeding controlled, No redness/swelling at site. Pressure dressing applied. 16:04 Provided Education on: na. ko1 Administered Medications: No medications were administered Medication: 16:04 VIS not applicable for this client. ko1 Outcome: 15:53 Discharge ordered by . [facility] 16:04 Discharged to Law Enforcement ko1 16:04 Condition: stable 16:04 Discharge instructions given to patient, police, Instructed on discharge instructions, follow up and referral plans. Demonstrated understanding of instructions, follow-up care, 16:10 Patient left the ED. ko1 Signatures: Dispatcher [employer] EDMS Josefina Hernández FNP JEWELRY MAKER [facility] Keiko Núñez RN RN ko1 Corrections: (The following items were deleted from the chart) 14:36 14:32 Chief complaint: EMS states: patient has been having chest pain and coughed up ko1 about 20cc of dark blood today, the chest pain has been going on for a couple of months. ko1 14:36 14:32 Coronavirus screen: At this time, the client does not indicate any symptoms ko1 associated with coronavirus-19. ko1 14:36 14:32 Ebola Screen: No symptoms or risks identified at this time. ko1 ko1 14:36 14:32 Method Of Arrival: EMS: [facility] ko1 ko1 14:36 14:32 Acuity: KAT 3 ko1 ko1
--- NOTE | 2023-09-05 15:53 | EDPHYS ---
Physician Documentation [facility] Name: Sd Zimmerman III Age: 22 yrs Sex: Male : 2000 Arrival Date: 09/05/2023 Time: 13:42 Bed 5 Private MD: ED Physician Phan Rousseau HPI: 09/05 14:30 This 22 yrs old Male presents to ER via EMS with complaints of chest and back pain, jh7 coughing up blood. 14:30 The patient or guardian reports chest pain that is located primarily in the chest jh7 diffusely. Associated signs and symptoms: Pertinent positives: Hemoptysis, Pertinent negatives: palpitations. 22-year-old male presents to the ER complaining of intermittent chest pain and back pain for the past 2 years. The patient was arrested this morning and the PD officer stated that the patient coughed up 20 mils of blood today. The patient states that he has had this occur for the past 2 years but has not been able to seek medical treatment. No travel outside of the country, fever, chills, or night sweats. Denies shortness of breath.. Historical: - Allergies: 14:36 No Known Allergies; ko1 - Immunization history:: Adult Immunizations unknown. - Social history:: Smoking status: Patient reports the use of cigarette tobacco products, Reported history of juuling and/or vaping. ROS: 14:30 Constitutional: Negative for fever, chills, and weight loss, Eyes: Negative for injury, jh7 pain, redness, and discharge, Neck: Negative for injury, pain, and swelling, Abdomen/GI: Negative for abdominal pain, nausea, vomiting, diarrhea, and constipation, Back: Negative for injury and pain, MS/Extremity: Negative for injury and deformity, Skin: Negative for injury, rash, and discoloration, Neuro: Negative for headache, weakness, numbness, tingling, and seizure, 14:30 Cardiovascular: Positive for chest pain, 14:30 Respiratory: Positive for hemoptysis, 14:30 All other systems are negative, Exam: 14:30 Constitutional: This is a well developed, well nourished patient who is awake, alert, jh7 and in no acute distress. Head/Face: Normocephalic, atraumatic. Eyes: Pupils equal round and reactive to light, extra-ocular motions intact. Lids and lashes normal. Conjunctiva and sclera are non-icteric and not injected. Cornea within normal limits. Periorbital areas with no swelling, redness, or edema. Cardiovascular: Regular rate and rhythm with a normal S1 and S2. No gallops, murmurs, or rubs. Normal PMI, no JVD. No pulse deficits. Respiratory: Lungs have equal breath sounds bilaterally, clear to auscultation and percussion. No rales, rhonchi or wheezes noted. No increased work of breathing, no retractions or nasal flaring. Abdomen/GI: Soft, non-tender, with normal bowel sounds. No distension or tympany. No guarding or rebound. No evidence of tenderness throughout. Back: No spinal tenderness. No costovertebral tenderness. Full range of motion. Skin: Warm, dry with normal turgor. Normal color with no rashes, no lesions, and no evidence of cellulitis. MS/ Extremity: Pulses equal, no cyanosis. Neurovascular intact. Full, normal range of motion. Neuro: Awake and alert, GCS 15, oriented to person, place, time, and situation. Motor strength 5/5 in all extremities. Sensory grossly intact. Normal gait. 14:30 Respiratory: Patient is able to cough up al[place] blood but cough is intermittent., Vital Signs: 13:47 BP 132 / 77; Pulse 83; Resp 16; Pulse Ox 99% on R/A; ko1 14:36 BP 152 / 65; Pulse 82; Resp 16; Temp 98; Pulse Ox 99% on R/A; ko1 16:04 BP 123 / 70; Pulse 78; Resp 14; Pulse Ox 97% on R/A; ko1 MDM: 13:47 Patient medically screened. [facility] 15:45 Differential diagnosis: acute myocardial infarction, pneumonia, pulmonary embolus, [facility] thoracic aortic disection. Data reviewed: vital signs, nurses notes, lab test result(s), EKG, radiologic studies, CT scan, plain films. Care significantly affected by the following Social Determinants of Health: Poor access to healthcare and/or lack of insurance. Counseling: I had a detailed discussion with the patient and/or guardian regarding the historical points, exam findings, and any diagnostic results supporting the discharge/admit diagnosis, the need for outpatient follow up, a rehab services aide, to return to the emergency department if symptoms worsen or persist or if there are any questions or concerns that arise at home. ED course: The patient reports that he has been intermittently coughing up blood for the past 2 years. Denies travel outside of the country, exposure to anyone with tuberculosis, fever, or vomiting. He reports that he has not been able to afford to see a doctor about this issue. Advised him to follow-up with pulmonology for likely bronchoscopy.. 15:45 Scoring Tools HEART Score: History: ECG: Age: Risk Factors: Troponin: Total Score = 0. [facility] 09/05 13:48 Order name: Basic Metabolic Panel; Complete Time: 14:46 [facility] 09/05 13:48 Order name: CBC with Diff; Complete Time: 14:46 [facility] 09/05 13:48 Order name: D-Dimer; Complete Time: 14:46 [facility] 09/05 13:48 Order name: PT-INR; Complete Time: 14:46 [facility] 09/05 13:48 Order name: Troponin HS; Complete Time: 14:46 [facility] 09/05 13:48 Order name: XRAY Chest (1 view); Complete Time: 15:39 [facility] 09/05 14:47 Order name: CT Chest For PE Angio; Complete Time: 15:39 [facility] 09/05 13:48 Order name: EKG; Complete Time: 13:48 [facility] 09/05 13:48 Order name: Cardiac monitoring; Complete Time: 14:20 [facility] 09/05 13:48 Order name: EKG - Nurse/Tech; Complete Time: 14:30 [facility] 09/05 13:48 Order name: IV Saline Lock; Complete Time: 14:20 [facility] 09/05 13:48 Order name: Labs collected and sent; Complete Time: 14:20 [facility] 09/05 13:48 Order name: O2 Per Protocol; Complete Time: 14:20 [facility] 09/05 13:48 Order name: O2 Sat Monitoring; Complete Time: 14:20 [facility] EC:28 Rate is 59 beats/min. Rhythm is regular. QRS [place] is Normal. NC interval is normal at 7 162 msec. QRS interval is normal at 92 msec. QT interval is normal at 392 msec. No Q waves. T waves are Normal. No ST changes noted. Clinical impression: Sinus bradycardia. Administered Medications: No medications were administered Disposition: 16:18 Co-signature as Attending Physician, Phan Rousseau MD I reviewed the patient's care rn provided by the Advanced Practice Provider and agree with the diagnosis and treatment plan. Disposition Summary: 09/05/23 15:53 Discharge Ordered Notes: Location: Home [facility] Problem: chronic [facility] Symptoms: are unchanged [facility] Condition: Stable [facility] Diagnosis - Hemoptysis [facility] Followup: [facility] - With: Yoel Mackenzie MD - When: 2 - 3 days - Reason: Further diagnostic work-up Discharge Instructions: - Discharge Summary Sheet [facility] - Hemoptysis [facility] - Cough, Adult [facility] Forms: - Medication Reconciliation Form [facility] - Thank You Letter [facility] - Patient Portal Instructions [facility] - Leadership Thank You Letter [facility] Signatures: Dispatcher [employer] EDPhan Moreno MD MD rn Hadash, Jennifer, UNDERWEAR FINISHER UNDERWEAR FINISHER [facility] Keiko Núñez RN RN ko1
--- NOTE | 2023-09-08 12:23 | EKG ---
Test Date: 2023-09-05 Test Time: 14:28:41 Digital Associate: ALYCE MEASUREMENT RESULTS: Intervals: Rate: 59 CO: 162 QRSD: 92 QT: 392 QTc: 388 [place]: P: 74 CO: 162 QRS: 82 T: 68 INTERPRETIVE STATEMENTS: Sinus bradycardia Otherwise normal ECG Compared to ECG 01/23/2021 19:57:17 Sinus rhythm no longer present Electronically Signed On 09-08-23 12:18:12 CDT by Hilario Robbins
== END 2023-09-05 16:10 | disposition home or self-care (01) ==
LOC: ER 13:42
DX: R04.2 Hemoptysis (principal); R07.9 Chest pain, unspecified; Z72.0 Tobacco use
CPT/HCPCS: 36415; 71045; 71275; 80048; 84484; 85025; 85379; 85610; 93005; 99284

== ENCOUNTER 2023-10-28 00:51 | Emergency (ER) | payer SELFPAY ==
--- OUTSIDE RECORDS SUMMARY | 2023-10-28 00:55 | XMS REPORT | Continuity of Care Document ---
:2000 Author Organization [facility] t Address [address] [place] [address] [address] [place] [address] Care Team Providers Name Role Phone Pcp, Patient Does Not Have A Primary Care Physician [id number] ZABRINA CORTÉS Attending Clinician Unavailable DALLIN UMANA Attending Clinician Unavailable Karthik Morrison DO Attending Clinician KARTHIK MORRISON Attending Clinician Unavailable SERAFIN ASHFORD Attending Clinician Unavailable Serafin Evangelista Attending Clinician Doctor Unassigned, [place] Attending Clinician Unavailable Lili Higgins MD Attending [...] Details Category Date Date Treatment Clinician Date ADHD ADHD Disease Active Overview: Brooke brooke (attention (attention 2-02 Formattin ity of deficit deficit 00:00: g of this [place] hyperactiv hyperactiv 00 note Me dical ity ity might be Branch disorder), disorder), different combined combined from the type type original. Overview: 5 Currently on Concerta ER, Clonidine , Seroquel, sees psychiatr y. No known No known Disease Unive rs active active ity of problems problems [facility] Allergies, Adverse Reactions, Alerts Allergy Allergy Status Severity Reaction(s) Onset Inactive Treating Comm ents Source Name Type Date Date Clinician NO KNOWN Drug Active Univers ALLERGIE Class ity of S [facility] Social History Social Habit Start Date Stop Date Quantity Comments Source Sexual orientation [facility] Exposure to 2022-06-16 2022-06-26 Not sure [facility] SARS-CoV-2 (event) 00:00:00 22:39:00 [facility] Sex Assigned At [birth year] [facility] 00:00:00 00:00:00 [facility] Smoking Status Start Date Stop Date Source Tobacco smoking consumption [facility] Medications Ordered Filled Start Stop Current Ordering Indication Dosage Frequency Signature Comments Components Source Medication Medication Date Date Medication? Clinician (SIG) Name Name methylpheni 2022-12 Yes 36mg Take 1 Univ ers date HCl 36 0-22 tablet by ity of mg 24 hr 15:05: mouth in [place] tablet 57 the Medical morning. Branch QUEtiapine 2022-12 Yes 50mg Take 1 Unive rs (SEROQUEL) 0-22 tablet by ity of 50 mg 15:05: mouth in [place] tablet 57 the Medical morning. Branch cloNIDine 2022-12 Yes .1mg Take 1 Univer s 0.1 mg 0-22 tablet by ity of tablet 15:05: mouth in [place] 57 the Medical morning. Branch cephALEXin 2022-12- Yes [id number] 500mg Take 1 Univers 500 mg 0-22 09-27 [id number] tablet by ity o f tablet 00:00: 04:59 mouth in [place] 00 :00 the Medical morning Branch and 1 tablet in the evening. Do all this for 5 days. ibuprofen 2022- No 600mg 600 mg, Uni vers (IBU) 05-13 Oral, ity of tablet 600 04:45: 04:35 ONCE, 1 [place] as mg 00 :00 dose, On Medical Mon Branch 05/12/23 at 2345, ALEX ibuprofen 2023-0 Yes [id number] 600mg Take 1 Univers 600 mg 6-13 [id number] tablet by ity of tablet 00:00: mouth [place] 00 every 6 Medical (six) Branch hours as needed for Pain (scale 4-6). ibuprofen 3-0 Yes [id number] 600mg Take 1 Univers 600 mg 6-13 [id number] tablet by ity of tablet 00:00: mouth [place] 00 every 6 Medical (six) Branch hours as needed for Pain (scale 4-6). naproxen 2021-0 Yes [id number] 500mg Take 1 Un jeremiah (NAPROSYN) 1-18 tablet by ity of 500 mg 00:00: mouth 2 [place] tablet 00 (two) Medical times Branch daily with meals. methocarbam 2-0 Yes [id number] 500mg Take 1 Univers oL 500 mg [...] Indication s: acute pain naproxen 2021-0 Yes [id number] 500mg Take 1 Un jeremiah (NAPROSYN) 1-18 tablet by ity of 500 mg 00:00: mouth 2 [place] tablet 00 (two) Medical times Branch daily with meals. methocarbam 2-0 Yes [id number] 500mg Take 1 Univers oL 500 mg 1-18 tablet by ity o f tablet 00:00: mouth 4 [place] 00 (four) Medical times Branch daily as needed for Pain (scale 4-6). traMADoL 50 2-0 Yes [id number] 50mg Take 1 Univ ers mg tablet 1-18 tablet by ity o f 00:00: mouth [place] 00 every 6 Medical (six) Branch hours as needed for Pain (scale 7-10). Indication s: acute pain naproxen 2022-0 Yes [id number] 500mg Take 1 Un jeremiah (NAPROSYN) 1-18 tablet by ity of 500 mg 00:00: mouth 2 [place] tablet 00 (two) Medical times Branch daily with meals. methocarbam 2022-0 Yes [id number] 500mg Take 1 Univers oL 500 mg [...] (scale 7-10). Indication s: acute pain naproxen 0 Yes [id number] 500mg Take 1 Un jeremiah (NAPROSYN) 1-18 tablet by ity of 500 mg 00:00: mouth 2 [place] tablet 00 (two) Medical times Branch daily with meals. methocarbam 2021-0 Yes [id number] 500mg Take 1 Univers oL 500 mg [...] Indication s: acute pain chlorhexidi 2020-0 Yes [id number] 15mL Swish and Univers ne 5-18 spit out ity of (PERIDEX) 00:00: 15 mL 2 [place] 0.12 % 00 (two) Medical mouthwash times Branch daily. chlorhexidi 2020-0 Yes [id number] 15mL Swish and Univers ne 5-18 spit out ity of (PERIDEX) 00:00: 15 mL 2 [place] 0.12 % 00 (two) Medical mouthwash times Branch daily. traMADol 50 2019-0 Yes [id number] 50mg Take 1 Univers mg tablet 5-18 tablet by ity o f 00:00: mouth [place] 00 every 8 Medical (eight) Branch hours as needed (pain unrelieved by Ibuprofen or Aleve). chlorhexidi 2020-0 Yes [id number] 15mL Swish and Univers ne 5-18 spit out ity of (PERIDEX) 00:00: 15 mL 2 [place] 0.12 % 00 (two) Medical mouthwash times Branch daily. chlorhexidi 2020-0 Yes [id number] 15mL Swish and Univers ne 5-18 spit out ity of (PERIDEX) 00:00: 15 mL 2 [place] 0.12 % 00 (two) Medical mouthwash times Branch daily. chlorhexidi 2019- Yes [id number] 15mL Swish and Univers ne 5-18 spit out ity of (PERIDEX) 00:00: 15 mL 2 [place] 0.12 % 00 (two) Medical mouthwash times Branch daily. traMADol 50 2021- No [id number] 50mg Take 1 Univers mg tablet -18 -18 tablet by ity of 00:00: 00:00 mouth [place] 00 :00 every 8 Medical (eight) Branch hours as needed (pain unrelieved by Ibuprofen or Aleve). amoxicillin Yes 500mg Take 1 Uni vers [...] Branch 500) hours. 500-125 mg tablet amoxicillin 2022- No 500mg Take 1 Un jeremiah -pot 9-20 -22 tablet by ity of clavulanate 00:00: 00:00 [place] 500 mg 00 :00 every 8 Medical (AUGMENTIN (eight) Branch 500) hours. 500-125 mg tablet Vital Signs Vital Name Observation Time Observation Value Comments Source Systolic blood 2023-09-21 19:11:00 142 mm[Hg] Univer sity of pressure [facility] Diastolic blood 2023-09-21 19:11:00 73 mm[Hg] Unive rsity of pressure [place] [facility] Heart rate 2023-09-21 19:11:00 66 /min Universi ty [facility] [place] [facility] Body temperature 2023-09-21 19:11:00 37 Shweta Univ ersity of [place] [facility] Respiratory rate 2023-09-21 19:11:00 18 /min Univ ersity of [place] [facility] Body height 2023-09-21 19:11:00 172.7 cm Universi ty [facility] [place] [facility] Body weight 2023-09-21 19:11:00 68.04 kg Universi ty [facility] [place] [facility] BMI 2023-09-21 19:11:00 22.81 kg/m2 Universi ty [facility] [place] [facility] Oxygen saturation in 2023-09-21 19:11:00 100 /min University of Arterial blood by [place] [employer] black Pulse oximetry Branch BMI 2023-05-13 04:25:00 22.05 kg/m2 Universi ty [facility] [place] [facility] Oxygen saturation in 2023-05-13 04:25:00 100 /min University of Arterial blood by [place] [employer] black Pulse oximetry Branch Systolic blood 2023-05-13 04:25:00 144 mm[Hg] Univer sity of pressure [place] [facility] Diastolic blood 2023-05-13 04:25:00 85 mm[Hg] Unive rsity of pressure [place] [facility] Heart rate 2023-05-13 04:25:00 79 /min Universi ty [facility] [place] [facility] Body temperature 2023-05-13 04:25:00 36.72 Shweta Univ ersity of [place] [facility] Respiratory rate 2023-05-13 04:25:00 18 /min Univ ersity of [place] [facility] Body height 2023-05-13 04:25:00 172.7 cm Universi ty [facility] [place] [facility] Body weight 2023-05-13 04:25:00 65.772 kg Universi ty [facility] [place] [facility] Systolic blood 2022-06-27 03:42:00 148 mm[Hg] Univer sity of pressure [place] [facility] Diastolic blood 2022-06-27 03:42:00 94 mm[Hg] Unive rsity of pressure [place] [facility] Heart rate 2022-06-27 03:42:00 86 /min Universi ty [facility] [place] [facility] Body temperature 2022-06-27 03:42:00 37.28 Shweta Univ ersity of [place] [facility] Respiratory rate 2022-06-27 03:42:00 18 /min Univ ersity of [place] [facility] Body height 2022-06-27 03:42:00 175.3 cm Universi ty [facility] [place] [facility] Body weight 2022-06-27 03:42:00 79.379 kg Universi ty [facility] [place] [facility] BMI 2022-06-27 03:42:00 25.84 kg/m2 Universi ty of [place] [facility] [place] Oxygen saturation in 2022-06-27 03:42:00 99 /min University of Arterial blood by [facility] Pulse oximetry Branch Systolic blood 2021-12-18 21:21:00 127 mm[Hg] Univer sity of pressure [place] [facility] Diastolic blood 2021-12-18 21:21:00 71 mm[Hg] Unive rsity of pressure [place] [facility] Heart rate 2021-12-18 21:21:00 89 /min Universi ty of [place] [facility] Body temperature 2021-12-18 21:21:00 36.94 Shweta [facility] [place] [facility] ersity of [place] [facility] Respiratory rate 2021-12-18 21:21:00 20 /min Univ ersity of [place] [facility] Body weight 2021-12-18 21:21:00 67.994 kg Universi ty [facility] [place] [facility] Oxygen saturation in 2021-12-18 21:21:00 100 /min University of Arterial blood by [facility] Pulse oximetry Branch Procedures Procedure Date / Time Performed Performing Clinician [facility] e CONSENT/REFUSAL FOR 2023-09-21 19:01:36 Doctor Unassigned, No [facility] [place] DI[facility]NOS[facility] AND Name Medical Branch TREATMENT ASSIGNMENT OF BENEFITS 2023-05-13 04:51:33 Doctor Unassigned, No [facility] Name Medical Branch NOTICE OF PRIVACY 2023-05-13 04:15:23 [facility], [facility] CONSENT/REFUSAL FOR 2023-05-13 04:14:15 Doctor Unassigned, No [facility] AND Name Medical Branch TREATMENT XR CHEST 1 VW 2021-12-18 21:39:22 Serafin Ashford [place] o f [place] [facility] NOTICE OF PRIVACY 2021-12-18 21:11:16 Doctor Unassigned, No [facility] CONSENT/REFUSAL FOR 2021-12-18 21:11:00 Doctor Unassigned, No Un [facility] DIAGNOSIS AND Name Medical Branch TREATMENT Encounters Start End Encounter Admission Attending Care Care Encounter Source Date/Time Date/Time Type Type Clinicians Facility Department ID 2023-09-21 2023-09-21 [facility] [id number] Univers 14:11:00 15:24:00 ZABRINA dumont [facility] 2023-09-21 2023-09-21 [facility] [id number] Univers 14:11:00 15:24:00 Zabrina BELTRAN [id number] ity of [place] [id number] [facility] [id number] [address] 2023-05-12 2023-05-13 Emergency [facility] [id number] Univers 23:26:00 00:48:00 MEGHANCORRINE julia [facility] 2023-05-12 2023-05-13 [facility] [id number] Univers 23:26:00 00:48:00 Dallin ROQUEREHANA [id number] i ty of [place] [id number] [facility] [id number] [address] 2022-06-26 2022-06-26 Emergency [facility] [id number] Univers 22:45:00 22:59:00 Karthik BELTRAN [id number] i ty of [place] [id number] [facility] [id number] [address] 2022-06-26 2022-06-26 Emergency [facility] [id number] Univers 22:45:00 22:59:00 KARTHIK dumont [facility] 2021-12-18 2021-12-18 Emergency [facility] [id number] Univers 15:23:00 16:34:00 SERAFIN [facility] 2021-12-18 2021-12-18 Emergency [facility] [id number] Univers 15:23:00 16:34:00 Serafin Brooke RUBY [id number] i ty of [place] [id number] [facility] [id number] [facility] 084 Branch 2021-12-18 2021-12-18 Orders Doctor CARRASCO [id number] Univers 00:00:00 00:00:00 Only Unassigned, STACY [id number] ity of [facility] 4.2.7.2.686 [facility] [id number] [facility] 009 Branch 2021-01-17 2021-01-18 Emergency [facility] [id number] 23:12:00 00:27:00 Lili Beltran [id number] [place] 4.2.7.2.686 [place] [id number] [facility] 2021-01-17 2021-01-17 Emergency [facility] [id number] Univers 23:12:00 23:12:00 LILI [facility] 2020-04-18 2020-04-18 Emergency Morrical, TRAUMA [id number] 01:09:01 02:25:00 Saul BEE [id number] 2020-04-18 2020-04-18 Emergency X EL, [facility] ERT [id number] Univers 01:09:01 01:09:01 SAUL dumont [facility] 2020-04-17 2020-04-17 [facility] [id number] 13:17:04 14:30:00 Gris Beltran [id number] [place] 4.2.7.2.686 [place] [id number] 2020-04-17 2020-04-17 Emergency [facility] [id number] Univers 13:17:04 13:17:04 GRIS dumont [facility] 2020-04-17 2020-04-17 Orders Doctor CARRASCO [id number] 00:00:00 00:00:00 Only Unassigned, STACY [id number] [place] [facility] 4.2.7.2.686 [id number] 2020-04-17 2020-04-17 Nurse DANILO Su [id number] 00:00:00 00:00:00 Triage Sandra KUMAR [id number] [place] [id number] 2019-07-08 2019-07-08 Emergency Dain [facility] [id number] 14:30:00 15:08:00 Jaja Beltran [id number] [place] 4.2.7.2.686 [place] [id number] [id number] Results This patient has no known results.
[2023-10-28] MEDS ORDERED: HYDROCODONE/APAP 5/325 MG TAB ONE (01:22)
[2023-10-28] MEDS ORDERED: IBUPROFEN 400 MG TAB ONE (01:23)
--- NOTE | 2023-10-28 05:40 | ER ---
Nurse's Notes [facility] Name: Sd Zimmerman III Age: 22 yrs Sex: Male : 2000 Arrival Date: 10/28/2023 Time: 00:51 Bed 8 Private MD: Diagnosis: Right foot third metatarsal fracture, right foot second metatarsal fracture, right foot nondisplaced mid second metatarsal fracture, right foot nondisplaced third metatarsal fracture. Presentation: 10/28 00:57 Chief complaint: Patient states: DROPPED TRANSMISSION ON THE RIGHT FOOT. PAIN 09/09. ha1 00:57 Coronavirus screen: Vaccine status: Patient reports being unvaccinated. Ebola Screen: ha1 No symptoms or risks identified at this time. Initial Sepsis Screen: Does the patient meet any 2 criteria? No. Patient's initial sepsis screen is negative. Does the patient have a suspected source of infection? No. Patient's initial sepsis screen is negative. Risk Assessment: Do you want to hurt yourself or someone else? Patient reports no desire to harm self or others. Onset of symptoms was October 28, 2023. 00:57 Method Of Arrival: Wheelchair ha1 00:57 Acuity: KAT 3 ha1 Triage Assessment: 00:57 General: Appears uncomfortable, Behavior is anxious, crying, restless. Pain: Complains ha1 of pain in RIGHT FOOT Pain does not radiate. Pain currently is 10 out of 10 on a pain scale. Quality of pain is described as stabbing, throbbing, Pain began suddenly, 1 hour ago. Neuro: Level of Consciousness is awake, alert, obeys commands, Oriented to person, place, time, situation. Cardiovascular: Capillary refill < 3 seconds in right toes Patient's skin is warm and dry. Respiratory: Airway is patent Respiratory effort is even, unlabored, Respiratory pattern is regular, symmetrical. Musculoskeletal: Circulation, motion, and sensation intact. 03:07 Injury Description: fracture. ha1 Historical: - Allergies: 01:20 No Known Allergies; ha1 - Immunization history:: Adult Immunizations unknown. - Social history:: Smoking status: Patient reports the use of cigarette tobacco products, smokes one-half pack cigarettes per day, Patient reports use of chewing tobacco. Reported history of juuling and/or vaping. Screenin:57 [facility] ED Fall Risk Assessment (Adult) History of falling in the last 3 months, ha1 including since admission No falls in past 3 months (0 pts) Confusion or Disorientation No (0 pts) Intoxicated or Sedated Yes (3 pts) Impaired Gait No (0 pts) Mobility Assist Device Used Yes (1 pt) Altered Elimination No (0 pt) Score/Fall Risk Level 0 - 2 = Low Risk Oriented to surroundings, Maintained a safe environment, Educated pt \T\ family on fall prevention, incl call for assistance when getting out of bed, Hourly rounding (assess needs \T\ fall precautionary measures) done. 01:42 Abuse screen: Denies threats or abuse. Denies injuries from another. Nutritional ha1 screening: No deficits noted. Tuberculosis screening: No symptoms or risk factors identified. Assessment: 00:57 Reassessment: SEE TRIAGE ASSESSMENT. ha1 01:50 Reassessment: Patient and/or family updated on plan of care and expected duration. Pain ha1 level reassessed. Patient is alert, oriented x 3, equal unlabored respirations, skin warm/dry/pink. 02:56 Reassessment: Patient and/or family updated on plan of care and expected duration. Pain ha1 level reassessed. Patient is alert, oriented x 3, equal unlabored respirations, skin warm/dry/pink. pain 4/10 Patient states feeling better. Patient states symptoms have improved. 03:50 Reassessment: Patient and/or family updated on plan of care and expected duration. Pain ha1 level reassessed. Patient is alert, oriented x 3, equal unlabored respirations, skin warm/dry/pink. 04:50 Reassessment: Patient and/or family updated on plan of care and expected duration. Pain ha1 level reassessed. Patient is alert, oriented x 3, equal unlabored respirations, skin warm/dry/pink. 05:50 Reassessment: Patient and/or family updated on plan of care and expected duration. Pain ha1 level reassessed. Patient is alert, oriented x 3, equal unlabored respirations, skin warm/dry/pink. Vital Signs: 01:15 BP 98 / 83; Pulse 112; Resp 20 S; Temp 98.2; Pulse Ox 100% on R/A; Weight 65.77 kg; ha1 Height 5 ft. 6 in. ; 02:31 BP 130 / 95; Pulse 87; Resp 20; Pulse Ox 99% ; jj7 03:40 BP 114 / 67; Pulse 80; Resp 16; Pulse Ox 99% ; jj7 04:30 BP 121 / 60; Pulse 77; Resp 17; Pulse Ox 100% ; jj7 05:30 BP 107 / 58; Pulse 68; Resp 17; Pulse Ox 99% ; Pain 0/10; jj7 01:15 Body Mass Index 23.40 (65.77 kg, 167.64 cm) ha1 05:30 Pain Scale: Adult [facility] ED Course: 00:56 Patient arrived in ED. gm2 00:57 Deepak Mcdowell PA is PHCP. cp 00:57 Elias Vargas MD is Attending Physician. cp 00:57 Arm band placed on left wrist. ha1 00:57 Allergy band placed. Placed in gown. Bed in low position. Call light in reach. Side ha1 rails up X 1. Adult w/ patient. 01:18 XRAY Foot RIGHT 3 View In Process Unspecified. EDMS 01:18 XRAY Tib Fib RIGHT In Process Unspecified. EDMS 01:19 Triage completed. ha1 02:29 John wrap to right LEG Orthoglass splint: Posterior long leg splint applied on right jj7 leg. stirrup splint applied on right leg. 03:07 Provided Education on: need to follow up with orthopedic . ha1 03:08 Assist provider with fracture care of right leg Fracture is closed. Circulation, motor ha1 and sensation is intact. Set up for procedure. Post immobilization, circulation, motor and sensation remain intact. Patient tolerated well. 03:10 Patient did not have IV access during this emergency room visit. ha1 03:17 Lower Ext Wo Con W/ Mpr In Process Unspecified. EDMS 05:12 Marlena Gilbert RN is Primary Nurse. jj7 05:39 Nikhil Dyer MD is Referral Physician. sp4 Administered Medications: 01:17 Drug: Ibuprofen PO 800 mg PO once Route: PO; ha1 05:59 Follow up: Response: Marked relief of symptoms jj7 01:17 Drug: HYDROcodone-acetaminophen PO 5 mg-325 mg 1 tabs PO once Route: PO; ha1 05:59 Follow up: Response: Marked relief of symptoms jj7 05:59 Drug: Promethazine PO 25 mg PO once Route: PO; jj7 06:00 Follow up: Response: No adverse reaction j 06:00 Drug: Ondansetron PO 8 mg PO once Route: PO; jj7 06:08 Follow up: Response: No adverse reaction Medication: 03:07 VIS not applicable for this client. ha1 Outcome: 03:10 Condition: stable ha1 05:39 Discharge ordered by MD. contreras 06:00 Discharged to home via wheelchair, with crutches, jj7 06:00 Condition: improved 06:00 Discharge instructions given to patient, Instructed on discharge instructions, follow up and referral plans. medication usage, Demonstrated understanding of instructions, follow-up care, medications, 06:08 Patient left the ED. jj7 Signatures: Dispatcher [employer] EDMS Deepak Mcdowell PA PA cp Ayala, Heidy, RN RN ha1 Marlena Gilbert RN RN jj7 Elias Vargas MD MD sp4 [facility]
--- NOTE | 2023-10-28 05:40 | EDPHYS ---
Physician Documentation [facility] Name: Sd Zimmerman III Age: 22 yrs Sex: Male : 2000 Arrival Date: 10/28/2023 Time: 00:51 Bed 8 Private MD: ED Physician Elias Vargas HPI: 10/28 01:05 This 22 yrs old Male presents to ER via Wheelchair with complaints of Foot Injury. cp 01:05 The patient presents with a crush injury, car transmission. The complaints affect the cp dorsum of right foot. Context: The problem was sustained at home. Onset: The symptoms/episode began/occurred just prior to arrival. Associated signs and symptoms: Pertinent positives: numbness. Treatment prior to arrival includes: no previous treatment. Historical: - Allergies: 01:20 No Known Allergies; ha1 - Immunization history:: Adult Immunizations unknown. - Social history:: Smoking status: Patient reports the use of cigarette tobacco products, smokes one-half pack cigarettes per day, Patient reports use of chewing tobacco. Reported history of juuling and/or vaping. ROS: 01:10 Constitutional: Negative for body aches, chills, fever, poor PO intake, cp 01:10 Eyes: Negative for injury, pain, redness, and discharge, cp 01:10 Cardiovascular: Negative for chest pain, palpitations, 01:10 Respiratory: Negative for cough, shortness of breath, wheezing, 01:10 Abdomen/GI: Negative for abdominal pain, nausea, vomiting, and diarrhea, 01:10 Back: Negative for pain at rest, pain with movement, 01:10 MS/extremity: Positive for ecchymosis, pain, swelling, tenderness, of the dorsum of right foot, 01:10 Neuro: Positive for numbness, of the right lower leg, Negative for altered mental status, 01:10 All other systems are negative, Exam: 01:15 Constitutional: The patient appears in no acute distress, alert, awake, non-toxic, well cp developed, well nourished, in obvious pain, uncomfortable, 01:15 Head/Face: Normocephalic, atraumatic. cp 01:15 Chest/axilla: Inspection: normal, 01:15 Cardiovascular: Rate: tachycardic, 01:15 Respiratory: the patient does not display signs of respiratory distress, Respirations: normal, no use of accessory muscles, no retractions, Breath sounds: are clear throughout, no decreased breath sounds, no stridor, no wheezing, 01:15 Abdomen/GI: Exam negative for discomfort, distension, guarding, Inspection: abdomen appears normal, 01:15 Back: pain, is absent, ROM is normal, 01:15 Musculoskeletal/extremity: Extremities: grossly normal except: noted in the dorsum of right foot: ecchymosis, pain, swelling, tenderness, skin intact with no open wounds, Pulses: noted to be 2+ in the right dorsalis pedis artery, Perfusion: the extremity is normally perfused throughout, the right lower leg numbness, Vital Signs: 01:15 BP 98 / 83; Pulse 112; Resp 20 S; Temp 98.2; Pulse Ox 100% on R/A; Weight 65.77 kg; ha1 Height 5 ft. 6 in. ; 02:31 BP 130 / 95; Pulse 87; Resp 20; Pulse Ox 99% ; jj7 03:40 BP 114 / 67; Pulse 80; Resp 16; Pulse Ox 99% ; jj7 04:30 BP 121 / 60; Pulse 77; Resp 17; Pulse Ox 100% ; jj7 05:30 BP 107 / 58; Pulse 68; Resp 17; Pulse Ox 99% ; Pain 0/10; jj7 01:15 Body Mass Index 23.40 (65.77 kg, 167.64 cm) ha1 05:30 Pain Scale: Adult jj7 MDM: 00:59 Patient medically screened. cp 04:57 ED course: X ray - COMPARISON: No relevant prior studies available. FINDINGS: sp4 Bones/joints: Nondisplaced fracture involving the mid second metatarsal. Possible nondisplaced fracture involving the mid third metatarsal. No dislocation. Soft tissues: Unremarkable. No radiopaque foreign body. IMPRESSION: 1. Nondisplaced fracture involving the mid second metatarsal. 2. Possible nondisplaced fracture involving the mid third metatarsal.. 05:38 ED course: CT report - COMPARISON: No relevant prior studies available. FINDINGS: sp4 Limitations: Evaluation limited due to technique. Bowel: Right lower quadrant ostomy. Prior hemicolectomy. No obstruction. Appendix: See above. Intraperitoneal space: Large amount of free fluid throughout the pelvis. No free air. Bladder: Vernon catheter in the bladder. No stones. Reproductive: Unremarkable as visualized. Bones/joints: No acute fracture. No dislocation. Soft tissues: Round approximately 2.5 cm cystic focus which appears contiguous with the lower abdominal wall in the periumbilical region which may represent a fluid collection or abscess. There are 3 adjacent nodular soft tissue densities measuring up to 2.6 cm which are poorly visualized. Vasculature: Unremarkable. No lower abdominal aortic aneurysm. Lymph nodes: Unremarkable. No enlarged lymph nodes. IMPRESSION: CT - FINDINGS: Bones/joints: Subtle nondisplaced fractures in the mid shafts of the second and third metatarsals, better demonstrated on the corresponding x-rays. Os trigonum noted incidentally. No dislocation. Soft tissues: Unremarkable. IMPRESSION: Subtle nondisplaced fractures in the mid shafts of the second and third metatarsals, better demonstrated on the corresponding xrays. Electronically signed by: Kasandra Ferguson MD 10/28/2023 05:18 . 10/28 01:02 Order name: XRAY Foot RIGHT 3 View cp 10/28 01:02 Order name: XRAY Tib Fib RIGHT cp 10/28 01:48 Order name: Lower Ext Wo Con W/ Mpr EDMS 10/28 01:33 Order name: Splint Leg: Short Leg; Complete Time: 02:32 cp 10/28 01:33 Order name: Crutches; Complete Time: 02:32 cp Administered Medications: 01:17 Drug: Ibuprofen PO 800 mg PO once Route: PO; ha1 05:59 Follow up: Response: Marked relief of symptoms jj7 01:17 Drug: HYDROcodone-acetaminophen PO 5 mg-325 mg 1 tabs PO once Route: PO; ha1 05:59 Follow up: Response: Marked relief of symptoms jj7 05:59 Drug: Promethazine PO 25 mg PO once Route: PO; jj7 06:00 Follow up: Response: No adverse reaction jj7 06:00 Drug: Ondansetron PO 8 mg PO once Route: PO; jj7 06:08 Follow up: Response: No adverse reaction jj7 Disposition: 04:57 Co-signature as Attending Physician, Elias Vargas MD I agree with the assessment sp4 and plan of care. I reviewed the patient's care provided by Advanced Practice Provider \T\ agree w/ the diagnosis \T\ care plan. I personally saw the pt \T\ performed a substantive portion of the visit, incldng all aspects of the (History/Exam/Medical Decision Making). Disposition Summary: 10/28/23 05:39 Discharge Ordered Problem: new sp4 Symptoms: have improved sp4 Condition: Stable sp4 Diagnosis - Right foot third metatarsal fracture, right foot second metatarsal fracture, right sp4 foot nondisplaced mid second metatarsal fracture, right foot nondisplaced third metatarsal fracture. Followup: sp4 - With: Nikhil Dyer MD - When: 7 - 10 days - Reason: Recheck today's complaints Discharge Instructions: - Discharge Summary Sheet sp4 - Metatarsal Fracture sp4 Forms: - Patient Portal Instructions sp4 Prescriptions: - acetaminophen-codeine 300-15 mg Oral tablet - take 1 tablet ORAL route every 8 hours PRN pain; 20 tablet; Refills: 0, Product sp4 Selection Permitted - Cyclobenzaprine 10 mg Oral Tablet - take 1 tablet ORAL route every 8 hours As needed; 30 tablet; Refills: 0, sp4 Product Selection Permitted Signatures: Dispatcher [employer] EDMS Deepak Mcdowell PA PA cp Ayala, Heidy RN RN ha1 Marlena Gilbert RN RN jj7 Elias Vargas MD MD sp4 Corrections: (The following items were deleted from the chart) 01:48 01:45 CT RIGHT ANKLE WO CONTRAST ordered. EDMS EDMS 01:48 01:45 CT RIGHT FOOT WO CONTRAST ordered. EDMS EDMS
[2023-10-28] MEDS ORDERED: PROMETHAZINE 25 MG TABLET ONE (05:58)
[2023-10-28] MEDS ORDERED: ONDANSETRON 4 MG (ODT) TAB ONE (06:06)
[2023-10-28 06:18] VITALS: TEMP 98.2
[2023-10-28 06:23] VITALS: BP 107/58; O2SAT 99
--- NOTE | 2023-10-28 19:57 | RAD REPORT ---
EXAM DESCRIPTION: RAD - Foot Right 3 View - 10/28/2023 1:16 am CLINICAL HISTORY: The patient is 22 years old and is Male; PAIN TECHNIQUE: Frontal, lateral and oblique views of the right foot. COMPARISON: No relevant prior studies available. FINDINGS: Bones/joints: Nondisplaced fracture involving the mid second metatarsal. Possible nondisplaced fracture involving the mid third metatarsal. No dislocation. Soft tissues: Unremarkable. No radiopaque foreign body. IMPRESSION: 1. Nondisplaced fracture involving the mid second metatarsal. 2. Possible nondisplaced fracture involving the mid third metatarsal. Electronically signed by: Jon Elliott MD 10/28/2023 01:33 AM FIRE COORDINATOR Due to temporary technical issues with the PACS/Fluency reporting system, reports are being signed by the in house radiologists without review as a courtesy to insure prompt reporting. The interpreting radiologist is fully responsible for the content of the
--- NOTE | 2023-10-28 20:00 | RAD REPORT ---
EXAM DESCRIPTION: RAD - Tib Fib Right - 10/28/2023 1:16 am CLINICAL HISTORY: The patient is 22 years old and is Male; PAIN TECHNIQUE: Frontal and lateral views of the right tibia and fibula. COMPARISON: No relevant prior studies available. FINDINGS: Bones/joints: Unremarkable. No acute fracture. No dislocation. Soft tissues: Unremarkable. No radiopaque foreign body. IMPRESSION: No acute fracture or dislocation. Electronically signed by: Jon Elliott MD 10/28/2023 01:31 AM DOULA Due to temporary technical issues with the PACS/Fluency reporting system, reports are being signed by the in house radiologists without review as a courtesy to insure prompt reporting. The interpreting radiologist is fully responsible for the content of the
--- NOTE | 2023-10-28 20:01 | RAD REPORT ---
EXAM DESCRIPTION: CT - Lower Ext Wo Con W/ Mpr - 10/28/2023 3:15 am CLINICAL HISTORY: The patient is 22 years old and is Male; pain, dropped transmission TECHNIQUE: Axial computed tomography images of the right lower extremity without intravenous contras t, from the mid lower leg to the toes. Sagittal and coronal reformatted images were created and rev iewed. This CT exam was performed using one or more of the following dose reduction techniques: a utomated exposure control, adjustment of the mA and/or kV according to patient size, and/or use of it erative reconstruction technique. COMPARISON: X-ray right foot October 28, 2023. FINDINGS: Bones/joints: Subtle nondisplaced fractures in the mid shafts of the second and third me tatarsals, better demonstrated on the corresponding x-rays. Os trigonum noted incidentally. No dislocation. Soft tissues: Unremarkable. IMPRESSION: Subtle nondisplaced fractures in the mid shafts of the second and third metatarsals, bet ter demonstrated on the corresponding x-rays. Electronically signed by: Kasandra Ferguson MD 10/28/2023 05:18 AM SANDER AND POLISHER Due to temporary technical issues with the PACS/Fluency reporting system, reports are being signed by the in house radiologists without review as a courtesy to insure prompt reporting. The interpreting radiologist is fully responsible for the content of the
== END 2023-10-28 06:08 | disposition home or self-care (01) ==
LOC: ER 00:51
DX: S92.321A Displaced fracture of second metatarsal bone, right foot, initial encounter for closed fracture (principal); S92.331A Displaced fracture of third metatarsal bone, right foot, initial encounter for closed fracture
CPT/HCPCS: 73700; 76377; 99284; Q0162; Q0169

== ENCOUNTER 2024-03-24 09:50 | Emergency (ER) | payer SELFPAY ==
--- OUTSIDE RECORDS SUMMARY | 2024-03-24 09:53 | XMS REPORT | Continuity of Care Document ---
Author Name Unknown Address [address] [facility] [address] [place] [address] [facility] Address [address] [facility] [address] [place] [address] Care Team Providers Care Air Traffic Instructor Name Role Phone Pcp, Patient Does Not Have A Primary Care Physic georgie ZABRINA CORTÉS Attending Clinician Unavailable DALLIN ELDER Attending Clinician Unavailab Karthik Manjarrez DO Attending Clinician [phone] KARTHIK CARTY Attending Clinician Unavailab SERAFIN Taveras Attending Clinician Unavailable Serafin Evangelista Attending Clinician [phone] Doctor Unassigned, [place] Attending Clinician U Lili Shoemaker MD Attending Clinician [phone] LILI HIGGINS Attending Clinician Unavailable Saul Smith MD Attending Clinician [phone] SAUL SMITH Attending Clinician UnavailGris Wright Attending Clinician [phone] GRIS DAVIS Attending Clinician Unavailable Sandra Su RN Attending Clinician UnavailJaja Bolden DO Attending Clinician [phone] DALLIN ELDER Admitting Clinician Unavailab SERAFIN Taveras Admitting Clinician Unavailable Problems Condition Name Condition Details Condition Category Status Onset Date Resolution Date Last Treatment Date Treating Clinician Comments Source ADHD (attention deficit hyperactiv ity disorder), combined type ADHD (attention deficit hyperactiv ity disorder), combined type Disease Active 01-02 00:00: 00 Overview: Formattin g of this note might be different from the original. Overview: 5 Currently on Concerta ER, Clonidine , Seroquel, sees psychiatr y. [facility] No known active problems No known active problems Disease [facility] Allergies, Adverse Reactions, Alerts Allergy Name Allergy Type Status Severity Reaction(s) Onset Date Inactive Date Treating Clinician Comments Source NO KNOWN ALLERGIE S Drug Class Active [facility] Social History Social Habit Start Date Stop Date Quantity Comments Source [facility] to SARS-CoV-2 (event) 2022-06-16 00:00:00 2022-06-26 22:39:00 Not sure [facility] Sex Assigned At 2000 00:00:00 2000 00:00:00 [facility] Smoking Status Start Date Stop Date Source Tobacco smoking consumption unknown [facility] Medications Ordered Medication Name Filled Medication Name Start Date Stop Date Current Medication? Ordering Clinician Indication Dosage Frequency Signature (SIG) Comments Components Source methylpheni date HCl 36 mg 24 hr tablet 2022-12 15:05: 57 Yes 36mg Take 1 tablet by mouth in the morning. [facility] QUEtiapine (SEROQUEL) 50 mg tablet 2022-12 15:05: 57 Yes 50mg Take 1 tablet by mouth in the morning. [facility] cloNIDine 0.1 mg tablet 2022-12 15:05: 57 Yes .1mg Take 1 tablet by mouth in the morning. [facility] cephALEXin 500 mg tablet 2022-12 00:00: 00 09-27 04:59 :00 No [id number] 500mg Take 1 tablet by mouth in the morning and 1 tablet in the evening. Do all this for 5 days. [facility] ibuprofen (IBU) tablet 600 mg 05-13 04:45: 00 05-13 04:35 :00 No 600mg 600 mg, Oral, ONCE, 1 dose, On Fri05/12/23 at 2345, ALEX [facility] ibuprofen 600 mg tablet 613 00:00: 00 Yes [id number] 600mg Take 1 tablet by mouth every 6 (six) hours as needed for Pain (scale 4-6). [facility] naproxen (NAPROSYN) 500 mg tablet 12-18 00:00: 00 Yes [id number] 500mg Take 1 tablet by mouth 2 (two) times daily with meals. [facility] methocarbam oL 500 mg tablet 12-18 00:00: 00 Yes [id number] 500mg Take 1 tablet by mouth 4 (four) times daily as needed for Pain (scale 4-6). [facility] traMADoL 50 mg tablet 12-18 00:00: 00 Yes [id number] 50mg Take 1 tablet by mouth every 6 (six) hours as needed for Pain (scale 7-10). Indication s: acute pain [facility] chlorhexidi ne (PERIDEX) 0.12 % mouthwash 04-17 00:00: 00 Yes [id number] 15mL Swish and spit out 15 mL 2 (two) times daily. [facility] traMADol 50 mg tablet 04-17 00:00: 00 12-18 00:00 :00 No [id number] 50mg Take 1 tablet by mouth every 8 (eight) hours as needed (pain unrelieved by Ibuprofen or Aleve). [facility] amoxicillin -pot clavulanate 500 mg (AUGMENTIN 500) 500-125 mg tablet 08-20 00:00: 00 09-21 00:00 :00 No 500mg Take 1 tablet by mouth every 8 (eight) hours. [facility] Vital Signs Vital Name Observation Time Observation Value Comments S kacie Systolic blood pressure 2023-09-21 19:11:00 142 mm[Hg] [facility] Diastolic blood pressure 2023-09-21 19:11:00 73 mm[Hg] [facility] Heart rate 2023-09-21 19:11:00 66 /[facility] 2023-09-21 19:11:00 37 Shweta [facility] Respiratory rate 2023-09-21 19:11:00 18 /min [facility] Body height 2023-09-21 19:11:00 172.7 cm [facility] Body weight 2023-09-21 19:11:00 68.04 kg [facility] BMI 2023-09-21 19:11:00 22.81 kg/m2 [facility] Oxygen saturation in Arterial blood by Pulse oximetry 2023-09-21 19:11:00 100 /min [facility] Diastolic blood pressure 2023-05-13 04:25:00 85 mm[Hg] [facility] Heart rate 2023-05-13 04:25:00 79 /min Unive [facility] Body temperature 2023-05-13 04:25:00 36.72 Shweta [facility] Respiratory rate 2023-05-13 04:25:00 18 /min [facility] Body height 2023-05-13 04:25:00 172.7 cm [facility] Body weight 2023-05-13 04:25:00 65.772 kg [facility] BMI 2023-05-13 04:25:00 22.05 kg/m2 [facility] Oxygen saturation in Arterial blood by Pulse oximetry 2023-05-13 04:25:00 100 /min [facility] Systolic blood pressure 2023-05-13 04:25:00 144 mm[Hg] [facility] Systolic blood pressure 2022-06-27 03:42:00 148 mm[Hg] [facility] Diastolic blood pressure 2022-06-27 03:42:00 94 mm[Hg] [facility] Heart rate 2022-06-27 03:42:00 86 /min Unive [facility] Body temperature 2022-06-27 03:42:00 37.28 Shweta [facility] Respiratory rate 2022-06-27 03:42:00 18 /min [facility] Body height 2022-06-27 03:42:00 175.3 cm [facility] Body weight 2022-06-27 03:42:00 79.379 kg [facility] BMI 2022-06-27 03:42:00 25.84 kg/m2 [facility] Oxygen saturation in Arterial blood by Pulse oximetry 2022-06-27 03:42:00 99 /min [facility] Systolic blood pressure 2021-12-18 21:21:00 127 mm[Hg] [facility] Diastolic blood pressure 2021-12-18 21:21:00 71 mm[Hg] [facility] Heart rate 2021-12-18 21:21:00 89 /[facility] Body temperature 2021-12-18 21:21:00 36.94 Shweta [facility] Respiratory rate 2021-12-18 21:21:00 20 /min [facility] Body weight 2021-12-18 21:21:00 67.994 kg [facility] Oxygen saturation in Arterial blood by Pulse oximetry 2021-12-18 21:21:00 100 /min [facility] Procedures Procedure Date / Time Performed Performing Clinicia n Source CONSENT/REFUSAL FOR DIAGNOSIS AND TREATMENT 2023-09-21 19:01:36 Doctor Unassigned, [place] [facility] ASSIGNMENT OF BENEFITS 2023-05-13 04:51:33 Docto r Unassigned, [place] [facility] NOTICE OF PRIVACY PRACTICES 2023-05-13 04:15:23 Doctor Unassigned, [place] [facility] CONSENT/REFUSAL FOR DIAGNOSIS AND TREATMENT 2023-05-13 04:14:15 Doctor Unassigned, [place] [facility] XR CHEST 1 VW 2021-12-18 21:39:22 Serafin Ashford [facility] NOTICE OF PRIVACY PRACTICES 2021-12-18 21:11:16 Doctor Unassigned, [place] [facility] CONSENT/REFUSAL FOR DIAGNOSIS AND TREATMENT 2021-12-18 21:11:00 Doctor Unassigned, [place] [facility] Encounters Start Date/Time End Date/Time Encounter Type Admission Type Attending [facility] Care Facility Care Department Encounter ID Source 2023-09-21 14:11:00 2023-09-21 15:24:00 Emergency X ZABRINA CORTÉS [facility] ERT [id number] [facility] 2023-09-21 14:11:00 2023-09-21 15:24:00 Emergency Zabrina Cortés [facility] [id number] 350.1.13.10 [id number] [id number] [facility] 2023-05-12 23:26:00 2023-05-13 00:48:00 Emergency X SHAHZAD ELDERCORRINE [facility] ERT [id number] [facility] 2023-05-12 23:26:00 2023-05-13 00:48:00 Emergency Shahzad Eldercorrine [facility] [id number] 350.1.13.10 4.2.7.2.686 [id number] [facility] 2022-06-26 22:45:00 2022-06-26 22:59:00 Emergency Rosiana mariaKarthik nelson [facility] [id number] 350.1.13.10 4.2.7.2.686 [id number] [facility] 2022-06-26 22:45:00 2022-06-26 22:59:00 Emergency X KARTHIK CARTY [facility] ERT [id number] [facility] 2021-12-18 15:23:00 2021-12-18 16:34:00 Emergency Mari SERAFIN ASHFORD [facility] ERT [id number] [facility] 2021-12-18 15:23:00 2021-12-18 16:34:00 Emergency Serafin Ashford [facility] [id number] 350.1.13.10 4.2.7.2.686 [id number] [facility] 2021-12-18 00:00:00 2021-12-18 00:00:00 Orders Only Doctor Unassigned, [place] [facility] [id number] 350.1.13.10 4.2.7.2.686 [id number] [facility] 2021-01-17 23:12:00 2021-01-18 00:27:00 Emergency Lili Higgins [facility] [id number] 350.1.13.10 4.2.7.2.686 [id number] 2021-01-17 23:12:00 2021-01-17 23:12:00 Emergency X LILI HIGGINS [facility] ERT [id number] [facility] 2020-04-18 01:09:01 2020-04-18 02:25:00 Emergency Luis Saul [facility] [id number] 350.1.13.10 4.2.7.2.686 [id number] 2020-04-18 01:09:01 2020-04-18 01:09:01 Emergency X SAUL SMITH [facility] ERT [id number] [facility] 2020-04-17 13:17:04 2020-04-17 14:30:00 Emergency Gris Davis [facility] [id number] 350.1.13.10 4.2.7.2.686 [id number] 2020-04-17 13:17:04 2020-04-17 13:17:04 Emergency X PETERSON [facility] ERT [id number] [facility] 2020-04-17 00:00:00 2020-04-17 00:00:00 Orders Only Doctor Unassigned, [place] [facility] 1.2.840.114 350.1.13.10 4.2.7.2.686 [id number] 2020-04-17 00:00:00 2020-04-17 00:00:00 Nurse Triage Sandra Su [facility] 1.2.840.114 350.1.13.10 4.2.7.2.686 [id number] 2019-07-08 14:30:00 2019-07-08 15:08:00 Emergency Jaja Gautam [facility] 1.2.840.114 350.1.13.10 4.2.7.2.686 [id number]
[2024-03-24] MEDS ORDERED: NA CHLORIDE 0.9% 0 ML ONE (10:15)
[2024-03-24] MEDS ORDERED: MAGNES/ALUMIN/SIMET 30ML UCUP ONE (10:15)
[2024-03-24] MEDS ORDERED: KETOROLAC 30 MG/ML INJ ONE (10:15)
--- NOTE | 2024-03-24 10:30 | RAD REPORT ---
EXAM DESCRIPTION: US - Abdomen Exam Limited - 03/24/2024 10:23 am CLINICAL HISTORY: Abdominal pain. COMPARISON: None. FINDINGS: 2.2 centimeter stone within the neck of the gallbladder. It appears impacted. Gallbladder is distended with a thickened wall. Biliary tree normal caliber IMPRESSION: Cholelithiasis with gallbladder distention The gallstone appears impacted in the neck of the gallbladder. Cholecystitis is present
--- NOTE | 2024-03-24 12:38 | ER ---
Nurse's Notes [facility] Name: Sd Zimmerman III Age: 23 yrs Sex: Male : 2000 Arrival Date: 03/24/2024 Time: 09:50 Bed 19 Private MD: Diagnosis: Acute cholecystitis Presentation: 03/24 09:57 Chief complaint: EMS states: COMPLAINS OF UPPER ABD, LOWER CHEST PAIN RADIATING TO db BACK. Coronavirus screen: Vaccine status: Patient reports being unvaccinated. Client denies travel out of the [place] in the last 14 days. Ebola Screen: Patient negative for fever greater than or equal to 101.5 degrees Fahrenheit, and additional compatible Ebola Virus Disease symptoms Patient denies exposure to infectious person. Patient denies travel to an Ebola-affected area in the 21 days before illness onset. No symptoms or risks identified at this time. Initial Sepsis Screen: Does the patient meet any 2 criteria? No. Patient's initial sepsis screen is negative. Does the patient have a suspected source of infection? No. Patient's initial sepsis screen is negative. Risk Assessment: Do you want to hurt yourself or someone else? Patient reports no desire to harm self or others. Onset of symptoms was March 24, 2024. 09:57 Method Of Arrival: EMS: [facility] db 09:57 Acuity: KAT 2 db Triage Assessment: 09:57 General: Appears in no apparent distress. comfortable, Behavior is calm, cooperative. db Pain: Complains of pain in back and abdomen and chest. Neuro: Level of Consciousness is awake, alert, obeys commands, Oriented to person, place, time, Speech is normal. Respiratory: Airway is patent Respiratory effort is even, unlabored, Respiratory pattern is regular, symmetrical. Historical: - Allergies: 10:00 No Known Allergies; db - PMHx: 10:00 None; db - PSHx: 10:00 None; db - Immunization history:: Adult Immunizations unknown. - Infectious Disease History:: Denies. - Social history:: Smoking status: Patient reports the use of cigarette tobacco products, smokes one pack cigarettes per day. Screenin:00 [facility] ED Fall Risk Assessment (Adult) History of falling in the last 3 months, db including since admission No falls in past 3 months (0 pts) Confusion or Disorientation No (0 pts) Intoxicated or Sedated No (0 pts) Impaired Gait No (0 pts) Mobility Assist Device Used No (0 pt) Altered Elimination No (0 pt) Score/Fall Risk Level 0 - 2 = Low Risk Oriented to surroundings, Educated pt \T\ family on fall prevention, incl call for assistance when getting out of bed. Abuse screen: Denies threats or abuse. Denies injuries from another. Nutritional screening: No deficits noted. Tuberculosis screening: No symptoms or risk factors identified. Assessment: 09:55 Reassessment: Patient appears in no apparent distress at this time. Patient and/or db family updated on plan of care and expected duration. Pain level reassessed. Patient is alert, oriented x 3, equal unlabored respirations, skin warm/dry/pink. General: Appears in no apparent distress. comfortable, Behavior is calm, cooperative. Pain: Complains of pain in chest and abdomen. Pain: Pain radiates to back. Neuro: Level of Consciousness is awake, alert, obeys commands, Oriented to person, place, time, situation. Respiratory: Airway is patent Respiratory effort is even, unlabored, Respiratory pattern is regular, symmetrical. 10:26 Reassessment: PATIENT REFUSED BLOOD WORK. NOTIFIED DR. SCHWARTZ. db 10:46 Reassessment: DR. SCHWARTZ SPOKE WITH PATIENT AND STATED IMPORTANCE OF IV AND db INFLAMED GALL BLADER. 11:01 Reassessment: PATIENT REFUSED IV AGAIN. PATIENT MOM AT BEDSIDE. NOTIFIED DR. melina SCHWARTZ. PATIENT STATES IS SCARED TO HAVE A NEEDLE STICK AND SCARED OF THE SURGERY. DR. SCHWARTZ SPEAKING WITH PATIENT AND PATIENT'S MOM. 11:01 Reassessment: Patient appears in no apparent distress at this time. Patient and/or db family updated on plan of care and expected duration. Pain level reassessed. Patient is alert, oriented x 3, equal unlabored respirations, skin warm/dry/pink. 11:39 Reassessment: ANOTHER STAFF MEMBER ATTEMPTED IV ACCESS. PATIENT REFUSED IV. db 12:34 Reassessment: PATIENT REFUSED IV ACCESS. PATIENT STATES WANTS TO LEAVE AMA. NOTIFIED db PROVIDER. 12:43 Reassessment: Patient appears in no apparent distress at this time. Patient and/or db family updated on plan of care and expected duration. Pain level reassessed. Patient is alert, oriented x 3, equal unlabored respirations, skin warm/dry/pink. PATIENT REFUSED TREATMENT. EDUCATED TO RETURN IF SYMPTOMS RETURN OR GET WORSE. General: Appears in no apparent distress. comfortable, Behavior is calm, cooperative. Vital Signs: 09:57 BP 125 / 79; Pulse 58; Resp 18; Temp 98.5(O); Pulse Ox 98% on R/A; db 10:30 BP 124 / 82; Pulse 68; Resp 18; Pulse Ox 100% on R/A; db 12:33 BP 117 / 60; Pulse 68; Resp 18; Pulse Ox 100% on R/A; db ED Course: 09:55 Patient arrived in ED. rt 09:57 Joseph Schwartz MD is Attending Physician. rt 09:57 Arm band placed on Patient placed in an exam room. db 09:59 Lona Patel, BALDEMAR is Primary Nurse. db 10:04 Patient taken to ultrasound. via wheelchair. db 10:06 Triage completed. db 10:16 Patient moved back from ultrasound. db 10:25 US Abdomen Limited In Process Unspecified. EDMS 10:25 EKG done, by ED staff, reviewed by Joseph Schwartz MD. db 11:03 Patient has correct armband on for positive identification. Bed in low position. Call db light in reach. Side rails up X 1. Pulse ox on. NIBP on. Warm blanket given. 12:35 Anjum Chávez MD is Referral Physician. rt 12:43 Provided Education on: DISCHARGE. db 12:43 No provider procedures requiring assistance completed. Patient did not have IV access db during this emergency room visit. Administered Medications: 10:26 Drug: Alum-Mag Hydroxide-Simeth PO Suspension (200 mg-200 mg-20 mg/5 mL) 30 ml PO once db Route: PO; 12:42 Follow up: Response: No adverse reaction db 12:42 Not Given (Patient Refused): ns 0.9% 1000 ml IV at 1 bolus Per protocol; 1000 mL bolus db 12:42 Not Given (Patient Refused): TORadol - [id number] mg IVP once db 12:42 Not Given (Patient Refused): piperacillin-tazobactam3.375 grams IVPB once over 60 mins; db (mix in NS 100 mL) Medication: 10:00 VIS not applicable for this client. db Outcome: 12:37 Discharge ordered by MD. rt 12:43 Discharged to home ambulatory, db 12:43 Condition: stable 12:43 Discharge instructions given to patient, Instructed on discharge instructions, follow up and referral plans. 12:45 Patient left the ED. db Signatures: Dispatcher [employer] Lona Gu RN RN db Joseph Schwartz MD MD rt
--- NOTE | 2024-03-24 12:38 | EDPHYS ---
Physician Documentation [facility] Name: Sd Zimmerman III Age: 23 yrs Sex: Male : 2000 Arrival Date: 03/24/2024 Time: 09:50 Bed 19 Private MD: ED Physician Joseph Gonzalez HPI: 03/24 10:09 This 23 yrs old Male presents to ER via EMS with complaints of epigastric pain. rt 10:09 Patient presents to the ED with lower chest and epigastric pain starting about 6 AM rt when he lie down. Patient reports feeling dizzy but denies nausea, vomiting. Patient states that he has had a few episodes of this previously. Denies other acute complaints at this time, symptoms are moderate in severity, no other aggravating or alleviating factors. Pain radiates to the back. Historical: - Allergies: 10:00 No Known Allergies; db - PMHx: 10:00 None; db - PSHx: 10:00 None; db - Immunization history:: Adult Immunizations unknown. - Infectious Disease History:: Denies. - Social history:: Smoking status: Patient reports the use of cigarette tobacco products, smokes one pack cigarettes per day. ROS: 10:09 Respiratory: Negative for shortness of breath, cough, wheezing, and pleuritic chest rt pain, MS/Extremity: Negative for injury and deformity, Skin: Negative for injury, rash, and discoloration, 10:09 Cardiovascular: Positive for chest pain, Negative for edema, 10:09 Abdomen/GI: Positive for abdominal pain, Negative for vomiting, 10:09 Neuro: Positive for dizziness, Negative for loss of consciousness, Exam: 10:09 Constitutional: This is a well developed, well nourished patient who is awake, alert, rt and in no acute distress. Head/Face: Normocephalic, atraumatic. Chest/axilla: Normal chest wall appearance and motion. Nontender with no deformity. No lesions are appreciated. Cardiovascular: Regular rate and rhythm with a normal S1 and S2. No gallops, murmurs, or rubs. Normal PMI, no JVD. No pulse deficits. Respiratory: Lungs have equal breath sounds bilaterally, clear to auscultation and percussion. No rales, rhonchi or wheezes noted. No increased work of breathing, no retractions or nasal flaring. Skin: Warm, dry with normal turgor. Normal color with no rashes, no lesions, and no evidence of cellulitis. MS/ Extremity: Pulses equal, no cyanosis. Neurovascular intact. Full, normal range of motion. Neuro: Awake and alert, GCS 15, oriented to person, place, time, and situation. Cranial nerves II-XII grossly intact. Motor strength 5/5 in all extremities. Sensory grossly intact. Cerebellar exam normal. Normal gait. 10:09 Abdomen/GI: Tenderness from the epigastrium to the right upper quadrant with mild guarding, no rebound, distention, no other focal areas of tenderness, 12:15 ECG was reviewed by the Attending Physician. rt Vital Signs: 09:57 BP 125 / 79; Pulse 58; Resp 18; Temp 98.5(O); Pulse Ox 98% on R/A; db 10:30 BP 124 / 82; Pulse 68; Resp 18; Pulse Ox 100% on R/A; db 12:33 BP 117 / 60; Pulse 68; Resp 18; Pulse Ox 100% on R/A; db MDM: 09:57 Patient medically screened. rt 14:34 Differential Diagnosis Cholecystitis, pancreatitis, gallstone pancreatitis. Data rt reviewed: vital signs, nurses notes, lab test result(s), EKG, radiologic studies. Consideration of Admission/Observation Escalation of care including admission/observation considered. Patient on multiple occasions refused IV start, blood draw. I informed the patient multiple times that he has findings consistent with an acute cholecystitis on ultrasound imaging that he requires a cholecystectomy. Informed him that we need to obtain blood work to ascertain the extent of the disease and to give him antibiotics. Informed patient that without antibiotics, surgery, his situation is likely to worsen, possibly leading to sepsis, gallbladder rupture. Patient still refuses IV, labs, admission. He has decisional making capacity. Will start patient on Augmentin, understanding this is suboptimal compared to cholecystectomy. He understands that he is to return if he changes his mind or if he has worsening of condition.. I considered the following discharge prescriptions or medication management in the emergency department Medications were administered in the Emergency Department. See MAR. Counseling: I had a detailed discussion with the patient and/or guardian regarding the historical points, exam findings, and any diagnostic results supporting the discharge/admit diagnosis, lab results, radiology results, the need for further work-up and treatment in the hospital. Refusal of service: The patient/guardian displays adequate decision making capability and despite a detailed discussion of alternatives, benefits, risks, and consequences refuses: Admission to the hospital for further work-up and treatment, all lab tests, Medications. 03/24 09:57 Order name: US Abdomen Limited; Complete Time: 10:35 rt 03/24 09:57 Order name: EKG; Complete Time: 09:58 rt 03/24 09:57 Order name: IV Saline Lock; Complete Time: 11:03 rt 03/24 09:57 Order name: Labs collected and sent; Complete Time: 11:03 rt 03/24 09:57 Order name: EKG - Nurse/Tech; Complete Time: 11:03 rt EC:25 Rate is 50 beats/min. Rhythm is regular, Sinus bradycardia with No ectopy. QRS [place] is rt Normal. [place] interval is normal. QRS interval is normal. QT interval is normal. No Q waves. T waves are Normal. No ST changes noted. Administered Medications: 10:26 Drug: Alum-Mag Hydroxide-Simeth PO Suspension (200 mg-200 mg-20 mg/5 mL) 30 ml PO once db Route: PO; 12:42 Follow up: Response: No adverse reaction db 12:42 Not Given (Patient Refused): ns 0.9% 1000 ml IV at 1 bolus Per protocol; 1000 mL bolus db 12:42 Not Given (Patient Refused): TORadol - [id number] mg IVP once db 12:42 Not Given (Patient Refused): piperacillin-tazobactam3.375 grams IVPB once over 60 mins; db (mix in NS 100 mL) Disposition Summary: 03/24/24 12:37 Discharge Ordered Notes: Location: Home rt Problem: new rt Symptoms: have improved rt Condition: Undetermined rt Diagnosis - Acute cholecystitis rt Followup: rt - With: Anjum Chávez MD - When: As soon as possible - Reason: Followup: rt - With: Emergency Department - When: Immediately if you worsen or change your mind regarding treatment - Reason: Discharge Instructions: - Discharge Summary Sheet rt - Cholecystitis rt - Gallbladder Eating Plan rt Forms: - Medication Reconciliation Form rt - Antibiotic Education rt - Prescription Opioid Use rt - Patient Portal Instructions rt - Leadership Thank You Letter rt Prescriptions: - Augmentin 875-125 mg Oral Tablet - take 1 tablet ORAL route every 12 hours for 10 days; 20 tablet; Refills: 0, rt Product Selection Permitted Signatures: Dispatcher [employer] Lona Gu RN RN Joseph Malone MD MD rt
[2024-03-24 12:59] VITALS: BP 117/60; TEMP 98.5; O2SAT 100
--- NOTE | 2024-03-25 16:45 | EKG ---
Test Date: 2024-03-24 Test Time: 10:25:13 Bore Mill Operator: MEENA MEASUREMENT RESULTS: Intervals: Rate: 50 ND: 146 QRSD: 110 QT: 402 QTc: 366 [place]: P: 70 ND: 146 QRS: 86 T: 49 INTERPRETIVE STATEMENTS: Sinus bradycardia Anterior infarct, age undetermined Abnormal ECG Compared to ECG 09/05/2023 14:28:41 Myocardial infarct finding now present Electronically Signed On 03-25-24 16:42:07 CDT by Hilario Robbins
== END 2024-03-24 12:45 | disposition home or self-care (01) ==
LOC: ER 09:50
DX: K81.0 Acute cholecystitis (principal); F17.210 Nicotine dependence, cigarettes, uncomplicated
CPT/HCPCS: 76705; 93005; 99284; J7030

== ENCOUNTER 2025-09-17 22:13 | Emergency (ER) | payer SELFPAY ==
[2025-09-17] MEDS ORDERED: ACETAMINOPHEN 500 MG TAB ONE (23:02)
[2025-09-17] MEDS ORDERED: IBUPROFEN 400 MG TAB ONE (23:02)
[2025-09-18 00:33] LABS: Influenza A Ag Negative; Influenza B Ag Negative; SARS-CoV-2 Antigen Rapid Res Negative (Negative)
--- NOTE | 2025-09-18 00:53 | EDPHYS ---
Physician Documentation [facility] Name: Sd Zimmerman III Age: 24 yrs Sex: Male : 2000 Arrival Date: 09/17/2025 Time: 22:13 Bed 9 Private MD: ED Physician Elias Vargas HPI: 09/17 23:27 This 24 yrs old Male presents to ER via Ambulatory with complaints of Fever, covid sb4 symptoms, Throat pain. 23:28 Patient reports a fever, sore throat, and bodyaches for about 24 hours now. states he sb4 took theraflu once this morning but hasn't taken anything else. denies any sick contacts. no cough. no n/v/d. Historical: - Allergies: 23:15 No Known Allergies; kt5 - Home Meds: 23:15 None [Active]; kt5 - PMHx: 23:15 None; kt5 - PSHx: 23:15 None; kt5 - Immunization history:: Adult Immunizations not up to date. - Infectious Disease History:: Denies. - Social history:: Smoking status: Reported history of juuling and/or vaping. Patient uses alcohol, occasionally. ROS: 23:28 Abdomen/GI: Negative for abdominal pain, nausea, vomiting, diarrhea, and constipation, sb4 23:28 Constitutional: Positive for body aches, fever, 23:28 ENT: Positive for sore throat, 23:28 All other systems are negative, Exam: 23:28 Head/Face: Normocephalic, atraumatic. Eyes: Extra-ocular motions intact. Periorbital sb4 areas with no swelling, redness, or edema. Cardiovascular: Regular rate and rhythm with a normal S1 and S2. Respiratory: No increased work of breathing, no retractions or nasal flaring. Abdomen/GI: Soft, non-tender, no distension. 23:28 Constitutional: The patient appears in no acute distress, alert, awake, 23:28 ENT: Posterior pharynx: Tonsils: bilaterally enlarged, with erythema, no exudate, no ulcerations, swelling, that is moderate, erythema, that is moderate, 23:28 Skin: Appearance: Temperature: warm, Vital Signs: 23:12 BP 126 / 68; Pulse 89; Resp 16; Temp 101.2; Pulse Ox 99% ; Weight 68.04 kg; Height 5 kt5 ft. 8 in. ; Pain 6/10; 23:12 Body Mass Index 22.81 (68.04 kg, 172.72 cm) kt5 23:12 Pain Scale: Adult kt5 MDM: 22:19 Medical Screening Exam initiated sb4 23:30 Differential diagnosis: viral Infection, bacterial infection, URI. sb4 09/18 00:57 Data reviewed: vital signs, nurses notes, lab test result(s), and as a result, I will sb4 discharge patient. Historians other than the Patient: Spouse/Significant Other: significant other. Counseling: I had a detailed discussion with the patient and/or guardian regarding the historical points, exam findings, and any diagnostic results supporting the discharge/admit diagnosis, lab results, the need for outpatient follow up, for definitive care, to return to the emergency department if symptoms worsen or persist or if there are any questions or concerns that arise at home. 09/17 22:51 Order name: Group A Streptococcus Rapid; Complete Time: 23:54 sb4 09/17 22:51 Order name: COVID-19 Ag + Flu A+B Ag; Complete Time: 00:51 sb4 09/17 23:56 Order name: Throat Culture EDMS Administered Medications: 09/17 23:11 Drug: Acetaminophen PO 1000 mg PO once Route: PO; 23:11 Drug: Ibuprofen PO 800 mg PO once Route: PO; 5 09/18 01:05 Drug: Amoxicillin-Clavulanate PO 875 mg PO once Route: PO; ha1 Disposition: 02:50 Co-signature as Attending Physician, Elias Vargas MD I agree with the assessment sp4 and plan of care. I reviewed the patient's care provided by the Advanced Practice Provider and agree with the diagnosis and treatment plan. Disposition Summary: 09/18/25 00:52 Discharge Ordered Notes: Location: Home sb4 Problem: new sb4 Symptoms: have improved sb4 Condition: Stable sb4 Diagnosis - Acute pharyngitis, unspecified sb4 Followup: sb4 - With: Emergency Department - When: As needed - Reason: Trouble breathing, Worsening of condition Discharge Instructions: - Discharge Summary Sheet sb4 - Pharyngitis, [id number] sb4 Forms: - Antibiotic Education sb4 - Patient Portal Instructions sb4 - Leadership Thank You Letter sb4 Prescriptions: - Amoxicillin 875 mg Oral Tablet - take 1 tablet ORAL route every 12 hours for 10 days; 20 tablet; Refills: 0, sb4 Product Selection Permitted Signatures: Dispatcher [employer] Brook Brito, RN RN ha1 Shawna Sung, PAJuliane PAJuliane sb4 Elias Vargas MD MD sp4 Blanca Diaz RN RN kt5
--- NOTE | 2025-09-18 00:53 | ER ---
Nurse's Notes [facility] Name: Sd Zimmerman III Age: 24 yrs Sex: Male : 2000 Arrival Date: 09/17/2025 Time: 22:13 Bed 9 Private MD: Diagnosis: Acute pharyngitis, unspecified Presentation: 09/17 23:12 Chief complaint: Patient states: pt here for flu like symptoms, cough, congestion, kt5 fever and sore throat since 0330 this morning. Coronavirus screen: Vaccine status: Patient reports being unvaccinated. Ebola Screen: No symptoms or risks identified at this time. Initial Sepsis Screen: Does the patient meet any 2 criteria? No. Patient's initial sepsis screen is negative. Does the patient have a suspected source of infection? No. Patient's initial sepsis screen is negative. Risk Assessment: Do you want to hurt yourself or someone else? Patient reports no desire to harm self or others. Onset of symptoms was September 17, 2025. 23:12 Method Of Arrival: Ambulatory kt5 23:12 Acuity: KAT 4 kt5 Triage Assessment: 23:15 General: Appears in no apparent distress. comfortable, Behavior is calm, cooperative, kt5 appropriate for age. Pain: Complains of pain in generalized body aches and sore throat Pain began gradually, Is continuous. EENT: Throat is reddened has enlarged tonsils bilaterally with gag reflex present, Reports pain in uvula, left aspect of posterior pharynx and right aspect of posterior pharynx. Neuro: No deficits noted. Simon Agitation-Sedation Scale (RASS): 0 - Alert and Calm. Cardiovascular: No deficits noted. Denies shortness of breath, Capillary refill < 3 seconds Clubbing of nail beds is absent JVD is absent. Respiratory: No deficits noted. Airway is patent Respiratory effort is even, unlabored, Respiratory pattern is regular, symmetrical, Breath sounds are clear bilaterally. Denies shortness of breath. GI: No deficits noted. No signs and/or symptoms were reported involving the gastrointestinal system. : No deficits noted. No signs and/or symptoms were reported regarding the genitourinary system. Derm: No deficits noted. No signs and/or symptoms reported regarding the dermatologic system. Skin is intact, is healthy with good turgor, Skin is dry, Skin is pink, warm \T\ dry. normal, Skin temperature is warm. Musculoskeletal: No deficits noted. No signs and/or symptoms reported regarding the musculoskeletal system. Historical: - Allergies: 23:15 No Known Allergies; kt5 - Home Meds: 23:15 None [Active]; kt5 - PMHx: 23:15 None; kt5 - PSHx: 23:15 None; kt5 - Immunization history:: Adult Immunizations not up to date. - Infectious Disease History:: Denies. - Social history:: Smoking status: Reported history of juuling and/or vaping. Patient uses alcohol, occasionally. Screenin:18 [facility] ED Fall Risk Assessment (Adult) History of falling in the last 3 months, kt5 including since admission No falls in past 3 months (0 pts) Confusion or Disorientation No (0 pts) Intoxicated or Sedated No (0 pts) Impaired Gait No (0 pts) Mobility Assist Device Used No (0 pt) Altered Elimination No (0 pt) Score/Fall Risk Level 0 - 2 = Low Risk Oriented to surroundings, Maintained a safe environment. Abuse screen: Denies threats or abuse. Nutritional screening: No deficits noted. Tuberculosis screening: No symptoms or risk factors identified. Assessment: 23:18 General: see triage note. kt5 23:56 General: report given to Henna winston, all questions answered. kt5 Vital Signs: 23:12 BP 126 / 68; Pulse 89; Resp 16; Temp 101.2; Pulse Ox 99% ; Weight 68.04 kg; Height 5 kt5 ft. 8 in. ; Pain 6/10; 23:12 Body Mass Index 22.81 (68.04 kg, 172.72 cm) kt5 23:12 Pain Scale: Adult kt5 ED Course: 22:18 Patient arrived in ED. gm2 22:19 Shawna Sung PA-C is PHCP. sb4 22:19 Elias Vargas MD is Attending Physician. sb4 22:59 Blanca Diaz, BALDEMAR is Primary Nurse. kt5 23:11 COVID-19 Ag + Flu A+B Ag Sent. kt5 23:11 Group A Streptococcus Rapid Sent. kt5 23:15 Triage completed. kt5 23:18 Patient has correct armband on for positive identification. Bed in low position. Call kt5 light in reach. Side rails up X 1. 23:18 Client placed on continuous cardiac and pulse oximetry monitoring. NIBP monitoring kt5 applied. Door closed. Noise minimized. Pillow given. Administered Medications: 23:11 Drug: Acetaminophen PO 1000 mg PO once Route: PO; kt5 23:11 Drug: Ibuprofen PO 800 mg PO once Route: PO; kt5 09/18 01:05 Drug: Amoxicillin-Clavulanate PO 875 mg PO once Route: PO; ha1 Medication: 09/17 23:18 VIS not applicable for this client. kt5 Outcome: 09/18 00:52 Discharge ordered by MD. blum 01:31 Patient left the ED. ha1 Signatures: Brook Hughes RN RN ha1 Shawna Sung PA-C PARoro Vences 2 Blanca Diaz, RN RN kt5
[2025-09-18] MEDS ORDERED: AMOX/K CLAV 875 MG TAB ONE (01:05)
[2025-09-18 06:12] VITALS: BP 126/68; TEMP 101.2; O2SAT 99
== END 2025-09-18 01:31 | disposition home or self-care (01) ==
LOC: ER 22:13
DX: J02.9 Acute pharyngitis, unspecified (principal); R50.9 Fever, unspecified; Z11.52 Encounter for screening for COVID-19
CPT/HCPCS: 36415; 87070; 87428; 99283